=== PATIENT | male | born 1970 | race Caucasian/White ===

== ENCOUNTER 2017-10-21 18:55 | Inpatient (IN) | payer OTHER ==
[2017-10-21 20:28] LABS: Hematocrit 27.5 % (35.5-45.6); Hemoglobin 8.5 gm/dl (11.8-15.2); Mean Corpuscular HGB Conc 31 % (32-34); Mean Corpuscular Hemoglobin 28 pg (28-32); Mean Corpuscular Volume 90 fl (84-94); Platelet Count 126 K/mm3 (140-440); Red Blood Count 3.07 M/mm3 (3.65-5.03); Red Cell Distribution Width 17.5 % (13.2-15.2)
--- NOTE | 2017-10-21 20:29 | Emergency Department Report ---
HPI - General Chief Complaint: Altered Mental Status Time Seen by Provider: 10/21/17 20:14 - HPI HPI: Room 8 The patient is a 47-year-old male presenting with chief complaint of lethargy. The patient is reportedly a resident at [facility]. The patient is a very poor historian and when asked why he was sent to the emergency department patient replies "I don't know." Per nursing EMS reported the patient was sent from the [place] [facility] because he has not had dialysis in 1 month and he has been behaving in a lethargic manner. When asked how he is feeling the patient replies "not good." When asked what is bothering him the patient replies "I don 't know." Patient denies pain of any type. Patient does admit to shortness of breath but when asked for how long the patient replies for "a long time." The patient denies nausea or vomiting. 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 Patient acknowledges he has not had dialysis recently Location: [See above] Duration: Unknown, see above Quality: Shortness of breath Severity: Moderate Modifying factors: [see above] Context: [see above] Mode of transportation: [not driving] ED Past Medical Hx - Past Medical History Previous Medical History?: Yes Hx Congestive Heart Failure: Yes Hx Renal Disease: Yes (Hemodialysis) Additional medical history: Hypothyroid - Surgical History Past Surgical History?: No Additional Surgical History: Right subclavian Vas-Cath - Social History Smoking Status: Unknown if ever smoked Substance Use Type: None ED Review of Systems ROS: Stated complaint: LETHARGIC Other details as noted in HPI Eyes: denies: eye pain ENT: denies: throat pain Respiratory: shortness of breath Cardiovascular: denies: chest pain Gastrointestinal: denies: abdominal pain Genitourinary: denies: dysuria Musculoskeletal: denies: back pain Neurological: denies: headache Physical Exam - Physical Exam Vital Signs: Vital Signs 10/21/17 19:51 Pulse Rate 63 Respiratory 18 Rate Blood Pressure 153/89 O2 Sat by Pulse 100 Oximetry Physical Exam: GENERAL: The patient is well-developed well-nourished male lying on stretcher not appearing to be in acute distress. [] HEENT: Normocephalic. Atraumatic. Patient has moist mucous membranes. NECK: Supple. Trachea midline CHEST/LUNGS: Clear to auscultation. There is no respiratory distress noted. HEART/CARDIOVASCULAR: Regular. There is no tachycardia. There is no gallop rub or murmur. ABDOMEN: Abdomen is soft, nontender. Patient has normal bowel sounds. There is no abdominal distention. SKIN: There is no rash. There is 2+ bilateral lower extremity pitting edema. There is no diaphoresis. NEURO: The patient is awake and oriented. The patient is cooperative. The patient has normal speech MUSCULOSKELETAL: There is no evidence of acute injury. ED Course Vital Signs 10/21/17 19:51 Pulse Rate 63 Respiratory 18 Rate Blood Pressure 153/89 O2 Sat by Pulse 100 Oximetry - Consultations Consultation #1: 10/21/17 21:09 Nephrology paged 10/21/17 21:[address] Thomas- will arrange for dialysis tonight. Recommends giving Kayexalate 45 g now ED Medical Decision Making - Lab Data Result diagrams: 10/21/17 20:05 10/21/17 20:05 Laboratory Tests 10/21/17 10/21/17 10/21/17 20:05 20:05 20:05 WBC 5.6 RBC 3.07 L Hgb 8.5 L Hct 27.5 L MCV 90 MCH 28 MCHC 31 L RDW 17.5 H Plt Count 126 L Add Manual Diff Complete Total Counted 100 Seg Neuts % (Manual) 68.0 Band Neutrophils % 8.0 Lymphocytes % (Manual) 12.0 L Reactive Lymphs % (Man) 0 Monocytes % (Manual) 4.0 Eosinophils % (Manual) 2.0 Basophils % (Manual) 3.0 H Metamyelocytes % 1.0 Myelocytes % 2.0 Promyelocytes % 0 Blast Cells % 0 Nucleated RBC % 2.0 H Seg Neutrophils # Man 3.8 Band Neutrophils # 0.4 Lymphocytes # (Manual) 0.7 L Abs React Lymphs (Man) 0.0 Monocytes # (Manual) 0.2 Eosinophils # (Manual) 0.1 Basophils # (Manual) 0.2 H Metamyelocytes # 0.1 Myelocytes # 0.1 Promyelocytes # 0.0 Blast Cells # 0.0 WBC Morphology Not Reportable Hypersegmented Neuts Not Reportable Hyposegmented Neuts Not Reportable Hypogranular Neuts Not Reportable Smudge Cells Not Reportable Toxic Granulation Not Reportable Toxic Vacuolation Not Reportable Dohle Bodies Not Reportable Pelger-Huet Anomaly Not Reportable Heather Rods Not Reportable Platelet Estimate Consistent w auto Clumped Platelets Not Reportable Plt Clumps, EDTA Not Reportable Large Platelets Not Reportable Giant Platelets Not Reportable Platelet Satelliting Not Reportable Plt Morphology Comment Not Reportable RBC Morphology Not Reportable Dimorphic RBCs Not Reportable Polychromasia Not Reportable Hypochromasia 1+ Poikilocytosis 2+ Anisocytosis 2+ Microcytosis Not Reportable Macrocytosis Not Reportable Spherocytes Not Reportable Pappenheimer Bodies Not Reportable Sickle Cells Not Reportable Target Cells Not Reportable Tear Drop Cells Not Reportable Ovalocytes 1+ Helmet Cells Not Reportable Aguiar-Piney Bodies Not Reportable Narvon Rings Not Reportable [place] Cells Not Reportable Bite Cells Not Reportable Crenated Cell Not Reportable Elliptocytes Not Reportable Acanthocytes (Spur) Not Reportable Rouleaux Not Reportable Hemoglobin C Crystals Not Reportable Schistocytes 1+ Malaria parasites Not Reportable Orestes Bodies Not Reportable Hem Pathologist Commnt No Sodium 140 Potassium 7.2 H* Chloride 109.8 H Carbon Dioxide 6 L* Anion Gap 31 BUN 105 H Creatinine 8.7 H Estimated GFR 7 BUN/Creatinine Ratio 12 Glucose 94 Calcium 5.2 L* Total Bilirubin 0.20 AST 18 ALT 11 Alkaline Phosphatase 111 Total Protein 6.5 Albumin 2.4 L Albumin/Globulin Ratio 0.6 TSH 12.120 H Plasma/Serum Alcohol 10/21/17 20:05 WBC RBC Hgb Hct MCV MCH MCHC RDW Plt Count Add Manual Diff Total Counted Seg Neuts % (Manual) Band Neutrophils % Lymphocytes % (Manual) Reactive Lymphs % (Man) Monocytes % (Manual) Eosinophils % (Manual) Basophils % (Manual) Metamyelocytes % Myelocytes % Promyelocytes % Blast Cells % Nucleated RBC % Seg Neutrophils # Man Band Neutrophils # Lymphocytes # (Manual) Abs React Lymphs (Man) Monocytes # (Manual) Eosinophils # (Manual) Basophils # (Manual) Metamyelocytes # Myelocytes # Promyelocytes # Blast Cells # WBC Morphology Hypersegmented Neuts Hyposegmented Neuts Hypogranular Neuts Smudge Cells Toxic Granulation Toxic Vacuolation Dohle Bodies Pelger-Huet Anomaly Heather Rods Platelet Estimate Clumped Platelets Plt Clumps, EDTA Large Platelets Giant Platelets Platelet Satelliting Plt Morphology Comment RBC Morphology Dimorphic RBCs Polychromasia Hypochromasia Poikilocytosis Anisocytosis Microcytosis Macrocytosis Spherocytes Pappenheimer Bodies Sickle Cells Target Cells Tear Drop Cells Ovalocytes Helmet Cells Aguiar-Piney Bodies Narvon Rings Marcellus Cells Bite Cells Crenated Cell Elliptocytes Acanthocytes (Spur) Rouleaux Hemoglobin C Crystals Schistocytes Malaria parasites Orestes Bodies Hem Pathologist Commnt Sodium Potassium Chloride Carbon Dioxide Anion Gap BUN Creatinine Estimated GFR BUN/Creatinine Ratio Glucose Calcium Total Bilirubin AST ALT Alkaline Phosphatase Total Protein Albumin Albumin/Globulin Ratio TSH Plasma/Serum Alcohol < 0.01 - EKG Data -: EKG Interpreted by Me EKG shows normal: sinus rhythm Rate: normal - EKG Data When compared to previous EKG there are: previous EKG unavailable Interpretation: nonspecific ST-T wave nayely (T-wave inversion in leads 1, aVL, V2) , other (No peaked T waves visualized.) - Radiology Data Radiology results: image reviewed (chest x-ray) interpreted by me: Chest x-ray-mild cephalization. No definite focal infiltrate. No pneumothorax - Differential Diagnosis azotemia, hyperkalemia, pulmonary edema Critical care attestation.: If time is entered above; I have spent that time in minutes in the direct care of this critically ill patient, excluding procedure time. ED Disposition Clinical Impression: Uremia, End stage renal disease, Shortness of breath, Hyperkalemia, Hypothermia Disposition: OP ADMIT IP TO THIS HOSP Is pt being admited?: Yes Does the pt Need Aspirin: No Condition: Serious Referrals: PRIMARY CARE, [Primary Care Provider] - 3-5 Days Time of Disposition: 21:16 (hospitalist paged)
[2017-10-21 20:38] LABS: Albumin 2.4 g/dL (3.9-5)
[2017-10-21 21:08] LABS: Calcium 5.2 mg/dL (8.4-10.2)
[2017-10-21] MEDS ORDERED: D50W (25GM) Syringe IV ONE (21:08)
[2017-10-21] MEDS ORDERED: SODIUM BICARBONATE IV ONE (21:08)
[2017-10-21] MEDS ORDERED: PROVENTIL IH ONE (21:08)
[2017-10-21 21:11] LABS: Band Neutrophils # (Manual) 0.4 K/mm3; Myelocytes # (Manual) 0.1 K/mm3; Total Cells Counted 100
[2017-10-21 21:12] LABS: Anisocytosis 2+
[2017-10-21 21:13] LABS: Schistocytes 1+
[2017-10-21 21:14] LABS: Hypochromasia 1+; Ovalocytes 1+; Platelet Estimate Consistent w Auto; Poikilocytosis 2+
[2017-10-21] MEDS ORDERED: KIONEX PO ONE (21:14)
[2017-10-21] MEDS ORDERED: NACL 0.9% 100 ML IV PRN (21:27)
[2017-10-21] MEDS ORDERED: PROCRIT IV PRN (21:27)
--- NOTE | 2017-10-21 21:33 | Event Note ---
Date: 10/21/[address] Krause about patient who presented with renal failure and hyperkalemia. Has not receive Dialysis in about a month. Patient has Permacath. Chart reviewed. We'll arrange for dialysis tonight. Full consult to follow in the morning.
--- NOTE | 2017-10-21 21:42 | XRay Report ---
FINAL REPORT PROCEDURE: Chest. TECHNIQUE: Portable AP view. HISTORY: Shortness of breath. COMPARISON: No prior studies are available for comparison. FINDINGS: The heart size is mildly enlarged. There may be some increased interstitial markings in the perihilar regions of both lungs. This could represent interstitial pulmonary edema. The lungs are otherwise clear. There are no pleural effusions. There is moderate elevation of the right hemidiaphragm. There is a right internal jugular venous dialysis catheter that terminates near the cavoatrial junction. The soft tissues and regional skeleton are unremarkable. IMPRESSION: Mild cardiomegaly. Question early interstitial pulmonary edema.
[2017-10-21] MEDS ORDERED: DULCOLAX PR PRN (21:46)
[2017-10-21] MEDS ORDERED: TYLENOL PO PRN (21:46)
[2017-10-21] MEDS ORDERED: MILK OF MAGNESIA PO PRN (21:46)
[2017-10-21] MEDS ORDERED: ZOFRAN IV PRN (21:46)
--- NOTE | 2017-10-21 21:48 | History and Physical Report ---
History of Present Illness Date of examination: 10/21/17 Date of admission: 10/21/17 21:23 History of present illness: 47-year-old man history of CHF, end-stage renal disease, hypothyroidism was brought to the emergency room for evaluation because he missed 1 month off dialysis. He is unable to give a history, review of system is unobtainable PAST MEDICAL HISTORY: CHF, end-stage renal disease, hypothyroidism, hypertension PAST SURGICAL HISTORY: Unknown SOCIAL HISTORY: Unknown FAMILY HISTORY: Unknown Medications and Allergies Allergies Allergy/AdvReac Type Severity Reaction Status Date / Time No Known Allergies Allergy Unverified 10/21/17 19:48 Home Medications Medication Instructions Recorded Confirmed Last Taken Type Atorvastatin Calcium [Lipitor] 10 mg PO QHS 10/21/17 Unknown History Calcium Acetate [Phoslo] 667 mg PO TID 10/21/17 Unknown History Levothyroxine [Synthroid] 25 mcg PO QAM 10/21/17 Unknown History Lisinopril [Zestril TAB] 2.5 mg PO QDAY 10/21/17 Unknown History Metoprolol [Lopressor] 25 mg PO DAILY 10/21/17 Unknown History Sulfamethoxazole/Trimethoprim 1 each PO DAILY 10/21/17 Unknown History [Sulfamethoxazole-Tmp Ss Tablet] Active Meds: Active Medications Epoetin Boyd (Procrit) 10,000 unit IV ASHISH PRN PRN Reason: hemodialysis Heparin Sodium (Porcine) (Heparin) 5,000 unit IV ASHISH PRN PRN Reason: hemodialysis Calcium Gluconate 1,000 mg/ (Sodium Chloride) 110 mls @ 660 mls/hr IV ONCE.ED ONE Stop: 10/21/17 22:09 Sodium Chloride (Nacl 0.9%) 100 mls @ 999 mls/hr IV ASHISH PRN PRN Reason: Hypotension Exam - Physical Exam Narrative exam: Gen. appearance: Patient lying in bed, no apparent distress HEENT: Normocephalic, atraumatic, pupils equally round and reactive to light, extraocular movement intact, and no sclericterus,. No JVD or thyromegaly or nodule,neck supple, no carotid bruit ,mucous membranes moist, no exudate or erythema Heart: S1, S2, regular rate and rhythm Lungs: Clear to auscultation bilaterally, breathing comfortable Abdomen: Positive bowel sounds, nontender, nondistended, no organomegaly Extremity: No edema, cyanosis, clubbing Skin: No rash, nodules, warm, dry Neuro: Difficult to assess, oriented to name,place - Constitutional Vitals: Temp Pulse Resp BP Pulse Ox 93.4 F L 79 22 153/89 100 10/21/17 19:51 10/21/17 21:21 10/21/17 21:21 10/21/17 19:51 10/21/17 19:51 Results - Labs CBC & Chem 7: 10/21/17 20:05 10/21/17 20:05 Labs: Abnormal lab results 10/21/17 10/21/17 10/21/17 Range/Units 20:05 20:05 20:05 RBC 3.07 L (3.65-5.03) M/mm3 Hgb 8.5 L (11.8-15.2) gm/dl Hct 27.5 L (35.5-45.6) % MCHC 31 L (32-34) % RDW 17.5 H (13.2-15.2) % Plt Count 126 L (140-440) K/mm3 Lymphocytes % (Manual) 12.0 L (13.4-35.0) % Basophils % (Manual) 3.0 H (0.0-1.8) % Nucleated RBC % 2.0 H (0.0-0.9) % Lymphocytes # (Manual) 0.7 L (1.2-5.4) K/mm3 Basophils # (Manual) 0.2 H (0.0-0.1) K/mm3 Potassium 7.2 H* (3.6-5.0) mmol/L Chloride 109.8 H (98-107) mmol/L Carbon Dioxide 6 L* (22-30) mmol/L BUN 105 H (9-20) mg/dL Creatinine 8.7 H (0.8-1.5) mg/dL Calcium 5.2 L* (8.4-10.2) mg/dL Albumin 2.4 L (3.9-5) g/dL TSH 12.120 H (0.270-4.200) mlU/mL - Imaging and Cardiology EKG: image reviewed Chest x-ray: image reviewed Assessment and Plan Assessment Fluid overload End-stage renal disease on dialysis Hyperkalemia Elevated cardiac enzymes Hypothyroidism Hypertension Plan Admit to medicine Consult renal for stat hemodialysis Status post Kayexalate Check cardiac enzymes, echo Obtain CT head Continue appropriate outpatient medications DVT prophylaxis
[2017-10-21] MEDS ORDERED: CALCIUM GLUCONATE 1,000 MG in NACL 0.9% 100 ML IV ONE (22:00)
--- NOTE | 2017-10-21 22:17 | Cat Scan Report ---
FINAL REPORT PROCEDURE: CT HEAD/BRAIN W CON TECHNIQUE: Computerized tomography of the head was performed without contrast material. HISTORY: lethargic COMPARISON: No prior studies are available for comparison. FINDINGS: Brain: Brain density appears normal. No evidence of intracranial hemorrhage. No parenchymal hemorrhage, mass lesions or mass effect are seen. No abnormal extraxial fluid collects or masses are seen. Ventricles: Ventricles are normal size and are midline. Bone Windows: No evidence of skull fracture. Paranasal sinuses: There is minimal mucosal thickening medially in the right frontal sinus and in a few of the ethmoid air cells bilaterally. Paranasal sinuses otherwise are clear. Mastoid air cells: Clear IMPRESSION: Negative unenhanced CT scan of the brain. Minimal paranasal sinus disease as described.
[2017-10-21 23:01] LABS: Creatine Kinase MB 34.3 ng/mL (0.0-4.0)
[2017-10-21 23:27] LABS: Chol/HDL Ratio 2.26 %
[2017-10-22] MEDS ORDERED: CATHFLO IV STA (01:05)
[2017-10-22] MEDS ORDERED: NACL 0.9 (PRIMING MACHINE ONLY DIALYSIS) MC ONE (01:16)
[2017-10-22] MEDS: APRESOLINE IV PRN ×2 (03:30→21:31)
[2017-10-22] MEDS ORDERED: SYNTHROID PO SCH ×2 (06:00→09:30)
[2017-10-22] MEDS: HEPARIN IV PRN (06:03)
[2017-10-22 06:57] LABS: Creatine Kinase MB 30.4 ng/mL (0.0-4.0)
[2017-10-22 06:59] LABS: Calcium 7.5 mg/dL (8.4-10.2)
[2017-10-22 07:09] LABS: Hepatitis A Antibody IgM Non-Reactive (NonReactive); Hepatitis B Core IgM Non-Reactive (NonReactive); Hepatitis B Surface Antigen Reactive (Negative); Hepatitis C Virus Antibody Non-Reactive (NonReactive)
[2017-10-22 07:22] LABS: Hematocrit 23.1 % (35.5-45.6); Hemoglobin 7.7 gm/dl (11.8-15.2); Mean Corpuscular HGB Conc 33 % (32-34); Mean Corpuscular Hemoglobin 28 pg (28-32); Mean Corpuscular Volume 84 fl (84-94); Platelet Count 129 K/mm3 (140-440); Red Blood Count 2.75 M/mm3 (3.65-5.03); Red Cell Distribution Width 16.6 % (13.2-15.2)
[2017-10-22] MEDS: PHOSLO PO SCH ×3 (08:17→18:18)
[2017-10-22 08:21] LABS: Band Neutrophils # (Manual) 0.2 K/mm3; Total Cells Counted 100
[2017-10-22 08:22] LABS: Basophils % (Manual) 0 % (0.0-1.8)
[2017-10-22 08:23] LABS: Acanthocytes Few; Anisocytosis 1+; Poikilocytosis 1+
[2017-10-22 08:25] LABS: Large Platelets Few; Ovalocytes Few; Platelet Estimate Cons
--- NOTE | 2017-10-22 09:17 | Consultation ---
History of Present Illness - Reason for Consult Consult date: 10/22/17 end stage renal disease Requesting physician: GIANLUCA MENDES - History of Present Illness 47-year-old male with a history of end-stage renal disease on hemodialysis who has not been to dialysis for a few weeks reportedly. 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 He says he is from [facility] and does not have any family here. He was reportedly brought here from a [place] [facility] but there is no phone number or contact information in the chart. Patient is not able to give history. He keeps saying " I Don't Know". BUN and Creatinine Were Elevated at 105/8.7 with Potassium of 7.2 mmols/L. I was called Last Night and gave Orders for Emergency Dialysis. Patient Seen Past History Past Medical History: other (Unable to obtain) Past Surgical History: Other (Unable to obtain) Social history: other (Unable to obtain) Family history: other (Unable to obtain) Medications and Allergies Allergies Allergy/AdvReac Type Severity Reaction Status Date / Time No Known Allergies Allergy Unverified 10/21/17 19:48 Home Medications Medication Instructions Recorded Confirmed Last Taken Type Atorvastatin Calcium [Lipitor] 10 mg PO QHS 10/21/17 10/22/17 1 Day Ago History ~10/21/17 Calcium Acetate [Phoslo] 667 mg PO TID 10/21/17 10/22/17 1 Day Ago History ~10/21/17 Levothyroxine [Synthroid] 25 mcg PO QAM 10/21/17 10/22/17 1 Day Ago History ~10/21/17 Lisinopril [Zestril TAB] 2.5 mg PO QDAY 10/21/17 10/22/17 1 Day Ago History ~10/21/17 Metoprolol [Lopressor] 25 mg PO DAILY 10/21/17 10/22/17 1 Day Ago History ~10/21/17 Sulfamethoxazole/Trimethoprim 1 each PO DAILY 10/21/17 10/22/17 1 Week Ago History [Sulfamethoxazole-Tmp Ss Tablet] ~10/15/17 Active Meds: Active Medications Acetaminophen (Tylenol) 650 mg PO Q4H PRN PRN Reason: Pain MILD(1-3)/Fever >100.5/CM Atorvastatin Calcium (Lipitor) 10 mg PO QHS SALLY Bisacodyl (Dulcolax) 10 mg TN QDAY PRN PRN Reason: Constipation unrelieved by [facility] Calcium Acetate (Phoslo) 667 mg PO TIDWM SALLY Epoetin Boyd (Procrit) 10,000 unit IV ASHISH PRN PRN Reason: hemodialysis Heparin Sodium (Porcine) (Heparin) 5,000 unit IV ASHISH PRN PRN Reason: hemodialysis Last Admin: 10/22/17 06:03 Dose: 5,000 unit Hydralazine HCl (Apresoline) 5 mg IV Q6H PRN PRN Reason: Hypertension Last Admin: 10/22/17 03:30 Dose: 5 mg Sodium Chloride (Nacl 0.9%) 100 mls @ 999 mls/hr IV ASHISH PRN PRN Reason: Hypotension Levofloxacin (Levaquin) 500 mg PO Q48H SALLY Levothyroxine Sodium (Synthroid) 25 mcg PO QAM@0600 SALLY Magnesium Hydroxide (Milk Of Magnesia) 30 ml PO Q4H PRN PRN Reason: Constipation Ondansetron HCl (Zofran) 4 mg IV Q8H PRN PRN Reason: N/V unrelieved by Reglan Review of Systems ROS unobtainable: due to mental status (Patient keeps saying "I don't know" to questions) Exam - Vital Signs Vital signs: Vital Signs Temp Pulse Resp BP Pulse Ox 93.4 F L 63 18 153/89 100 10/21/17 19:51 10/21/17 19:51 10/21/17 19:51 10/21/17 19:51 10/21/17 19:51 - Physical Exam Narrative exam: Middle aged male lying in bed in no acute distress coughing intermittently HEENT: NCAT, blind right eye, pink oral mucous membrane Neck: Supple, no venous distention CVS: S1S2 RRR with no murmur, rub or gallop Chest: Clear to auscultation Abdomen: Protuberant, soft, nontender, no organomegaly, bowel sounds are present Extremities: No edema Skin with hyperpigmented scars and scratch butler Neuro: Awake, alert no focal deficits Results - Lab Results 10/22/17 07:06 10/22/17 05:30 Most recent lab results Calcium 7.5 mg/dL (8.4-10.2) L D 02/26/18 05:30 Assessment and Plan - Patient Problems (1) End stage renal disease Current Visit: Yes Status: Acute Plan to address problem: Patient received dialysis last night. We'll do hemodialysis again tomorrow. brand protection manager to arrange for outpatient dialysis placement. It's unclear if patient is documented or has any medical insurance. This has to be ascertained also. Get PPD and check hepatitis B surface antibody (2) Hyperkalemia Current Visit: Yes Status: Acute Plan to address problem: Potassium improved with dialysis. Potassium which is noticeably low this am was drawn soon after dialysis. There will be equilibration later and so this does not need to be replaced (3) Hypocalcemia Current Visit: Yes Status: Acute Plan to address problem: Calcium improving with dialysis on a high calcium bath. Check serum intact PTH (4) Anemia in chronic kidney disease Current Visit: Yes Status: Acute Plan to address problem: Erythropoietin on dialysis (5) Metabolic acidosis Current Visit: Yes Status: Acute Plan to address problem: Uremic acidosis. Should improve with dialysis. (6) Hypothyroidism (acquired) Current Visit: Yes Status: Acute Plan to address problem: Checkup thyroid Profile. Start Synthroid
[2017-10-22] MEDS: SYNTHROID PO SCH (10:19)
--- NOTE | 2017-10-22 15:48 | Progress Note ---
<MICHAEL PERKINS - Last Filed: 10/22/17 15:44> Assessment and Plan Assessment and plan: 47-year-old man history of CHF, end-stage renal disease, hypothyroidism was brought to the emergency room for evaluation because he missed 1 month off dialysis. End-stage renal disease on dialysis Nephrology following, HD scheduled for tomorrow Hyperkalemia S/p Kayexalate, Corrected with dialysis Elevated cardiac enzymes Likely due to ESRD, consult to cardiology Hypothyroidism Continue Synthroid Hypertension Hydralazine PRN Anemia of chronic disease Erythropoietin on dialysis Hypocalcemia Improving with HD DVT prophylaxis SCDs History Interval history: Patient seen and examined. Very lethargic today. Denies CP, SOB. Labs and nursing notes reviewed. Hospitalist Physical - Constitutional Vitals: Temp Pulse Resp BP Pulse Ox 97.9 F 101 H 20 179/91 96 10/22/17 06:30 10/22/17 07:18 10/22/17 07:18 10/22/17 07:18 10/22/17 08:30 General appearance: Present: no acute distress, well-nourished - EENT Eyes: Present: PERRL, EOM intact ENT: hearing intact, clear oral mucosa - Neck Neck: Present: supple, normal ROM - Respiratory Respiratory effort: normal Respiratory: bilateral: CTA - Cardiovascular Rhythm: regular Heart Sounds: Present: S1 & S2 - Extremities Extremities: no ischemia, No edema - Abdominal General gastrointestinal: soft, non-tender, non-distended - Integumentary Integumentary: Present: clear, warm - Psychiatric Psychiatric: appropriate mood/affect, cooperative - Neurologic Neurologic: CNII-XII intact, moves all extremities - Allied Health Allied health notes reviewed: nursing Results - Labs CBC & Chem 7: 10/22/17 07:06 10/22/17 05:30 Labs: Laboratory Last Values WBC 5.4 K/mm3 (4.5-11.0) 10/22/17 07:06 RBC 2.75 M/mm3 (3.65-5.03) L 10/22/17 07:06 Hgb 7.7 gm/dl (11.8-15.2) L 10/22/17 07:06 Hct 23.1 % (35.5-45.6) L 10/22/17 07:06 MCV 84 fl (84-94) 10/22/17 07:06 MCH 28 pg (28-32) 10/22/17 07:06 MCHC 33 % (32-34) 10/22/17 07:06 RDW 16.6 % (13.2-15.2) H 10/22/17 07:06 Plt Count 129 K/mm3 (140-440) L 10/22/17 07:06 Add Manual Diff Complete 10/22/17 07:06 Total Counted 100 10/22/17 07:06 Seg Neuts % (Manual) 87.0 % (40.0-70.0) H 10/22/17 07:06 Band Neutrophils % 3.0 % 10/22/17 07:06 Lymphocytes % (Manual) 6.0 % (13.4-35.0) L 10/22/17 07:06 Reactive Lymphs % (Man) 0 % 10/22/17 07:06 Monocytes % (Manual) 1.0 % (0.0-7.3) 10/22/17 07:06 Eosinophils % (Manual) 1.0 % (0.0-4.3) 10/22/17 07:06 Basophils % (Manual) 0 % (0.0-1.8) 10/22/17 07:06 Metamyelocytes % 2.0 % 10/22/17 07:06 Myelocytes % 0 % 10/22/17 07:06 Promyelocytes % 0 % 10/22/17 07:06 Blast Cells % 0 % 10/22/17 07:06 Nucleated RBC % 3.0 % (0.0-0.9) H 10/22/17 07:06 Seg Neutrophils # Man 4.7 K/mm3 (1.8-7.7) 10/22/17 07:06 Band Neutrophils # 0.2 K/mm3 10/22/17 07:06 Lymphocytes # (Manual) 0.3 K/mm3 (1.2-5.4) L 10/22/17 07:06 Abs React Lymphs (Man) 0.0 K/mm3 10/22/17 07:06 Monocytes # (Manual) 0.1 K/mm3 (0.0-0.8) 10/22/17 07:06 Eosinophils # (Manual) 0.1 K/mm3 (0.0-0.4) 10/22/17 07:06 Basophils # (Manual) 0.0 K/mm3 (0.0-0.1) 10/22/17 07:06 Metamyelocytes # 0.1 K/mm3 10/22/17 07:06 Myelocytes # 0.0 K/mm3 10/22/17 07:06 Promyelocytes # 0.0 K/mm3 10/22/17 07:06 Blast Cells # 0.0 K/mm3 10/22/17 07:06 WBC Morphology Not Reportable 10/22/17 07:06 Hypersegmented Neuts Not Reportable 10/22/17 07:06 Hyposegmented Neuts Not Reportable 10/22/17 07:06 Hypogranular Neuts Not Reportable 10/22/17 07:06 Smudge Cells Not Reportable 10/22/17 07:06 Toxic Granulation Not Reportable 10/22/17 07:06 Toxic Vacuolation Not Reportable 10/22/17 07:06 Dohle Bodies Not Reportable 10/22/17 07:06 Pelger-Huet Anomaly Not Reportable 10/22/17 07:06 Heather Rods Not Reportable 10/22/17 07:06 Platelet Estimate Cons 10/22/17 07:06 Clumped Platelets Not Reportable 10/22/17 07:06 Plt Clumps, EDTA Not Reportable 10/22/17 07:06 Large Platelets Few 10/22/17 07:06 Giant Platelets Not Reportable 10/22/17 07:06 Platelet Satelliting Not Reportable 10/22/17 07:06 Plt Morphology Comment Not Reportable 10/22/17 07:06 RBC Morphology Not Reportable 10/22/17 07:06 Dimorphic RBCs Not Reportable 10/22/17 07:06 Polychromasia Not Reportable 10/22/17 07:06 Hypochromasia Not Reportable 10/22/17 07:06 Poikilocytosis 1+ 10/22/17 07:06 Anisocytosis 1+ 10/22/17 07:06 Microcytosis Not Reportable 10/22/17 07:06 Macrocytosis Not Reportable 10/22/17 07:06 Spherocytes Not Reportable 10/22/17 07:06 Pappenheimer Bodies Not Reportable 10/22/17 07:06 Sickle Cells Not Reportable 10/22/17 07:06 Target Cells Not Reportable 10/22/17 07:06 Tear Drop Cells Not Reportable 10/22/17 07:06 Ovalocytes Few 10/22/17 07:06 Helmet Cells Not Reportable 10/22/17 07:06 Aguiar-Kinsley Bodies Not Reportable 10/22/17 07:06 [place] Rings Not Reportable 10/22/17 07:06 Marcellus Cells Not Reportable 10/22/17 07:06 Bite Cells Not Reportable 10/22/17 07:06 Crenated Cell Not Reportable 10/22/17 07:06 Elliptocytes Rare 10/22/17 07:06 Acanthocytes (Spur) Few 10/22/17 07:06 Rouleaux Not Reportable 10/22/17 07:06 Hemoglobin C Crystals Not Reportable 10/22/17 07:06 Schistocytes Not Reportable 10/22/17 07:06 Malaria parasites Not Reportable 10/22/17 07:06 Orestes Bodies Not Reportable 10/22/17 07:06 Hem Pathologist Commnt No 10/22/17 07:06 Sodium 141 mmol/L (137-145) 10/22/17 05:30 Potassium 3.0 mmol/L (3.6-5.0) L D 10/22/17 05:30 Chloride 100.6 mmol/L (98-107) 10/22/17 05:30 Carbon Dioxide 19 mmol/L (22-30) L D 10/22/17 05:30 Anion Gap 24 mmol/L 10/22/17 05:30 BUN 41 mg/dL (9-20) H 10/22/17 05:30 Creatinine 3.8 mg/dL (0.8-1.5) H D 10/22/17 05:30 Estimated GFR 17 ml/min 10/22/17 05:30 BUN/Creatinine Ratio 11 % 10/22/17 05:30 Glucose 137 mg/dL (75-100) H 10/22/17 05:30 POC Glucose 190 (70-105) H 10/21/17 21:59 Calcium 7.5 mg/dL (8.4-10.2) L D 10/22/17 05:30 Total Bilirubin 0.20 mg/dL (0.1-1.2) 10/21/17 20:05 AST 18 units/L (5-40) 10/21/17 20:05 ALT 11 units/L (7-56) 10/21/17 20:05 Alkaline Phosphatase 111 units/L (35-129) 10/21/17 20:05 Total Creatine Kinase 2198 units/L (55-170) H 10/22/17 05:30 CK-MB (CK-2) 30.4 ng/mL (0.0-4.0) H 10/22/17 05:30 CK-MB (CK-2) Rel Index 1.3 (0-4) 10/22/17 05:30 Troponin T 0.572 ng/mL (0.00-0.029) H* D 10/22/17 05:30 Total Protein 6.5 g/dL (6.3-8.2) 10/21/17 20:05 Albumin 2.4 g/dL (3.9-5) L 10/21/17 20:05 Albumin/Globulin Ratio 0.6 % 10/21/17 20:05 Triglycerides 115 mg/dL (2-149) 10/21/17 20:05 Cholesterol 111 mg/dL (50-199) 10/21/17 20:05 LDL Cholesterol Direct 39 mg/dL (50-130) L 10/21/17 20:05 HDL Cholesterol 49 mg/dL (40-59) 10/21/17 20:05 Cholesterol/HDL Ratio 2.26 % 10/21/17 20:05 TSH 12.120 mlU/mL (0.270-4.200) H 10/21/17 20:05 Plasma/Serum Alcohol < 0.01 % (0-0.07) 10/21/17 20:05 Hepatitis A IgM Ab Non-reactive (NonReactive) 10/22/17 05:30 Hep Bs Antigen Reactive (Negative) 10/22/17 05:30 Hep B Core IgM Ab Non-reactive (NonReactive) 10/22/17 05:30 Hepatitis C Antibody Non-reactive (NonReactive) 10/22/17 05:30 <ZAHRAA RUSSELL - Last Filed: 10/22/17 20:42> Assessment and Plan Assessment and plan: I saw and evaluated the patient. I agree with the findings and the plan of care as documented in the Physician Tractor Mechanic's~note, with the following corrections and additions. Discussed with Clinical Rn Liaison. Hospitalist Physical - Constitutional Vitals: Temp Pulse Resp BP Pulse Ox 98.9 F 92 H 20 186/104 94 10/22/17 19:46 10/22/17 19:46 10/22/17 19:46 10/22/17 19:46 10/22/17 19:46 Results - Labs CBC & Chem 7: 10/22/17 07:06 10/22/17 05:30 Labs: Laboratory Last Values WBC 5.4 K/mm3 (4.5-11.0) 10/22/17 07:06 RBC 2.75 M/mm3 (3.65-5.03) L 10/22/17 07:06 Hgb 7.7 gm/dl (11.8-15.2) L 10/22/17 07:06 Hct 23.1 % (35.5-45.6) L 10/22/17 07:06 MCV 84 fl (84-94) 10/22/17 07:06 MCH 28 pg (28-32) 10/22/17 07:06 MCHC 33 % (32-34) 10/22/17 07:06 RDW 16.6 % (13.2-15.2) H 10/22/17 07:06 Plt Count 129 K/mm3 (140-440) L 10/22/17 07:06 Add Manual Diff Complete 10/22/17 07:06 Total Counted 100 10/22/17 07:06 Seg Neuts % (Manual) 87.0 % (40.0-70.0) H 10/22/17 07:06 Band Neutrophils % 3.0 % 10/22/17 07:06 Lymphocytes % (Manual) 6.0 % (13.4-35.0) L 10/22/17 07:06 Reactive Lymphs % (Man) 0 % 10/22/17 07:06 Monocytes % (Manual) 1.0 % (0.0-7.3) 10/22/17 07:06 Eosinophils % (Manual) 1.0 % (0.0-4.3) 10/22/17 07:06 Basophils % (Manual) 0 % (0.0-1.8) 10/22/17 07:06 Metamyelocytes % 2.0 % 10/22/17 07:06 Myelocytes % 0 % 10/22/17 07:06 Promyelocytes % 0 % 10/22/17 07:06 Blast Cells % 0 % 10/22/17 07:06 Nucleated RBC % 3.0 % (0.0-0.9) H 10/22/17 07:06 Seg Neutrophils # Man 4.7 K/mm3 (1.8-7.7) 10/22/17 07:06 Band Neutrophils # 0.2 K/mm3 10/22/17 07:06 Lymphocytes # (Manual) 0.3 K/mm3 (1.2-5.4) L 10/22/17 07:06 Abs React Lymphs (Man) 0.0 K/mm3 10/22/17 07:06 Monocytes # (Manual) 0.1 K/mm3 (0.0-0.8) 10/22/17 07:06 Eosinophils # (Manual) 0.1 K/mm3 (0.0-0.4) 10/22/17 07:06 Basophils # (Manual) 0.0 K/mm3 (0.0-0.1) 10/22/17 07:06 Metamyelocytes # 0.1 K/mm3 10/22/17 07:06 Myelocytes # 0.0 K/mm3 10/22/17 07:06 Promyelocytes # 0.0 K/mm3 10/22/17 07:06 Blast Cells # 0.0 K/mm3 10/22/17 07:06 WBC Morphology Not Reportable 10/22/17 07:06 Hypersegmented Neuts Not Reportable 10/22/17 07:06 Hyposegmented Neuts Not Reportable 10/22/17 07:06 Hypogranular Neuts Not Reportable 10/22/17 07:06 Smudge Cells Not Reportable 10/22/17 07:06 Toxic Granulation Not Reportable 10/22/17 07:06 Toxic Vacuolation Not Reportable 10/22/17 07:06 Dohle Bodies Not Reportable 10/22/17 07:06 Pelger-Huet Anomaly Not Reportable 10/22/17 07:06 Heather Rods Not Reportable 10/22/17 07:06 Platelet Estimate Cons 10/22/17 07:06 Clumped Platelets Not Reportable 10/22/17 07:06 Plt Clumps, EDTA Not Reportable 10/22/17 07:06 Large Platelets Few 10/22/17 07:06 Giant Platelets Not Reportable 10/22/17 07:06 Platelet Satelliting Not Reportable 10/22/17 07:06 Plt Morphology Comment Not Reportable 10/22/17 07:06 RBC Morphology Not Reportable 10/22/17 07:06 Dimorphic RBCs Not Reportable 10/22/17 07:06 Polychromasia Not Reportable 10/22/17 07:06 Hypochromasia Not Reportable 10/22/17 07:06 Poikilocytosis 1+ 10/22/17 07:06 Anisocytosis 1+ 10/22/17 07:06 Microcytosis Not Reportable 10/22/17 07:06 Macrocytosis Not Reportable 10/22/17 07:06 Spherocytes Not Reportable 10/22/17 07:06 Pappenheimer Bodies Not Reportable 10/22/17 07:06 Sickle Cells Not Reportable 10/22/17 07:06 Target Cells Not Reportable 10/22/17 07:06 Tear Drop Cells Not Reportable 10/22/17 07:06 Ovalocytes Few 10/22/17 07:06 Helmet Cells Not Reportable 10/22/17 07:06 Aguiar-Kinsley Bodies Not Reportable 10/22/17 07:06 [place] Rings Not Reportable 10/22/17 07:06 [place] Cells Not Reportable 10/22/17 07:06 Bite Cells Not Reportable 10/22/17 07:06 Crenated Cell Not Reportable 10/22/17 07:06 Elliptocytes Rare 10/22/17 07:06 Acanthocytes (Spur) Few 10/22/17 07:06 Rouleaux Not Reportable 10/22/17 07:06 Hemoglobin C Crystals Not Reportable 10/22/17 07:06 Schistocytes Not Reportable 10/22/17 07:06 Malaria parasites Not Reportable 10/22/17 07:06 Orestes Bodies Not Reportable 10/22/17 07:06 Hem Pathologist Commnt No 10/22/17 07:06 Sodium 141 mmol/L (137-145) 10/22/17 05:30 Potassium 3.0 mmol/L (3.6-5.0) L D 10/22/17 05:30 Chloride 100.6 mmol/L (98-107) 10/22/17 05:30 Carbon Dioxide 19 mmol/L (22-30) L D 10/22/17 05:30 Anion Gap 24 mmol/L 10/22/17 05:30 BUN 41 mg/dL (9-20) H 10/22/17 05:30 Creatinine 3.8 mg/dL (0.8-1.5) H D 10/22/17 05:30 Estimated GFR 17 ml/min 10/22/17 05:30 BUN/Creatinine Ratio 11 % 10/22/17 05:30 Glucose 137 mg/dL (75-100) H 10/22/17 05:30 POC Glucose 190 (70-105) H 10/21/17 21:59 Calcium 7.5 mg/dL (8.4-10.2) L D 10/22/17 05:30 Total Bilirubin 0.20 mg/dL (0.1-1.2) 10/21/17 20:05 AST 18 units/L (5-40) 10/21/17 20:05 ALT 11 units/L (7-56) 10/21/17 20:05 Alkaline Phosphatase 111 units/L (35-129) 10/21/17 20:05 Total Creatine Kinase 2198 units/L (55-170) H 10/22/17 05:30 CK-MB (CK-2) 30.4 ng/mL (0.0-4.0) H 10/22/17 05:30 CK-MB (CK-2) Rel Index 1.3 (0-4) 10/22/17 05:30 Troponin T 0.572 ng/mL (0.00-0.029) H* D 10/22/17 05:30 Total Protein 6.5 g/dL (6.3-8.2) 10/21/17 20:05 Albumin 2.4 g/dL (3.9-5) L 10/21/17 20:05 Albumin/Globulin Ratio 0.6 % 10/21/17 20:05 Triglycerides 115 mg/dL (2-149) 10/21/17 20:05 Cholesterol 111 mg/dL (50-199) 10/21/17 20:05 LDL Cholesterol Direct 39 mg/dL (50-130) L 10/21/17 20:05 HDL Cholesterol 49 mg/dL (40-59) 10/21/17 20:05 Cholesterol/HDL Ratio 2.26 % 10/21/17 20:05 TSH 12.120 mlU/mL (0.270-4.200) H 10/21/17 20:05 Plasma/Serum Alcohol < 0.01 % (0-0.07) 10/21/17 20:05 Hepatitis A IgM Ab Non-reactive (NonReactive) 10/22/17 05:30 Hep Bs Antigen Reactive (Negative) 10/22/17 05:30 Hep B Core IgM Ab Non-reactive (NonReactive) 10/22/17 05:30 Hepatitis C Antibody Non-reactive (NonReactive) 10/22/17 05:30
[2017-10-23] MEDS: SYNTHROID PO SCH (07:58)
[2017-10-23] MEDS: PHOSLO PO SCH ×4 (08:00→22:01)
--- NOTE | 2017-10-23 11:23 | Progress Note ---
<MICHAEL PERKINS - Last Filed: 10/23/17 15:17> Assessment and Plan Assessment and plan: 47-year-old man history of CHF, end-stage renal disease, hypothyroidism was brought to the emergency room for evaluation because he missed 1 month off dialysis. End-stage renal disease on dialysis Nephrology following, HD scheduled for tomorrow Hyperkalemia S/p Kayexalate, Corrected with dialysis Elevated cardiac enzymes Likely due to ESRD, cardiology following, echo ordered, initiated on metoprolol Hypothyroidism Continue Synthroid Hypertension Amlodipine initiated, Hydralazine PRN Anemia of chronic disease Erythropoietin on dialysis Hypocalcemia Improving with HD DVT prophylaxis SCDs History Interval history: Patient seen and examined. No new events overnight. Labs and nursing notes reviewed. Hospitalist Physical - Constitutional Vitals: Temp Pulse Resp BP Pulse Ox 97.7 F 97 H 18 147/100 97 10/23/17 07:28 10/23/17 07:44 10/23/17 07:28 10/23/17 07:28 10/23/17 00:00 General appearance: Present: no acute distress, well-nourished - EENT Eyes: Present: PERRL, EOM intact ENT: hearing intact, clear oral mucosa - Neck Neck: Present: supple, normal ROM - Respiratory Respiratory effort: normal Respiratory: bilateral: CTA - Cardiovascular Rhythm: regular Heart Sounds: Present: S1 & S2 - Extremities Extremities: no ischemia, No edema - Abdominal General gastrointestinal: soft, non-tender, non-distended - Integumentary Integumentary: Present: clear, warm, dry - Psychiatric Psychiatric: appropriate mood/affect, cooperative - Neurologic Neurologic: CNII-XII intact, moves all extremities - Allied Health Allied health notes reviewed: nursing Results - Labs CBC & Chem 7: 10/22/17 07:06 10/22/17 05:30 Labs: Laboratory Last Values WBC 5.4 K/mm3 (4.5-11.0) 10/22/17 07:06 RBC 2.75 M/mm3 (3.65-5.03) L 10/22/17 07:06 Hgb 7.7 gm/dl (11.8-15.2) L 10/22/17 07:06 Hct 23.1 % (35.5-45.6) L 10/22/17 07:06 MCV 84 fl (84-94) 10/22/17 07:06 MCH 28 pg (28-32) 10/22/17 07:06 MCHC 33 % (32-34) 10/22/17 07:06 RDW 16.6 % (13.2-15.2) H 10/22/17 07:06 Plt Count 129 K/mm3 (140-440) L 10/22/17 07:06 Add Manual Diff Complete 10/22/17 07:06 Total Counted 100 10/22/17 07:06 Seg Neuts % (Manual) 87.0 % (40.0-70.0) H 10/22/17 07:06 Band Neutrophils % 3.0 % 10/22/17 07:06 Lymphocytes % (Manual) 6.0 % (13.4-35.0) L 10/22/17 07:06 Reactive Lymphs % (Man) 0 % 10/22/17 07:06 Monocytes % (Manual) 1.0 % (0.0-7.3) 10/22/17 07:06 Eosinophils % (Manual) 1.0 % (0.0-4.3) 10/22/17 07:06 Basophils % (Manual) 0 % (0.0-1.8) 10/22/17 07:06 Metamyelocytes % 2.0 % 10/22/17 07:06 Myelocytes % 0 % 10/22/17 07:06 Promyelocytes % 0 % 10/22/17 07:06 Blast Cells % 0 % 10/22/17 07:06 Nucleated RBC % 3.0 % (0.0-0.9) H 10/22/17 07:06 Seg Neutrophils # Man 4.7 K/mm3 (1.8-7.7) 10/22/17 07:06 Band Neutrophils # 0.2 K/mm3 10/22/17 07:06 Lymphocytes # (Manual) 0.3 K/mm3 (1.2-5.4) L 10/22/17 07:06 Abs React Lymphs (Man) 0.0 K/mm3 10/22/17 07:06 Monocytes # (Manual) 0.1 K/mm3 (0.0-0.8) 10/22/17 07:06 Eosinophils # (Manual) 0.1 K/mm3 (0.0-0.4) 10/22/17 07:06 Basophils # (Manual) 0.0 K/mm3 (0.0-0.1) 10/22/17 07:06 Metamyelocytes # 0.1 K/mm3 10/22/17 07:06 Myelocytes # 0.0 K/mm3 10/22/17 07:06 Promyelocytes # 0.0 K/mm3 10/22/17 07:06 Blast Cells # 0.0 K/mm3 10/22/17 07:06 WBC Morphology Not Reportable 10/22/17 07:06 Hypersegmented Neuts Not Reportable 10/22/17 07:06 Hyposegmented Neuts Not Reportable 10/22/17 07:06 Hypogranular Neuts Not Reportable 10/22/17 07:06 Smudge Cells Not Reportable 10/22/17 07:06 Toxic Granulation Not Reportable 10/22/17 07:06 Toxic Vacuolation Not Reportable 10/22/17 07:06 Dohle Bodies Not Reportable 10/22/17 07:06 Pelger-Huet Anomaly Not Reportable 10/22/17 07:06 Heather Rods Not Reportable 10/22/17 07:06 Platelet Estimate Cons 10/22/17 07:06 Clumped Platelets Not Reportable 10/22/17 07:06 Plt Clumps, EDTA Not Reportable 10/22/17 07:06 Large Platelets Few 10/22/17 07:06 Giant Platelets Not Reportable 10/22/17 07:06 Platelet Satelliting Not Reportable 10/22/17 07:06 Plt Morphology Comment Not Reportable 10/22/17 07:06 RBC Morphology Not Reportable 10/22/17 07:06 Dimorphic RBCs Not Reportable 10/22/17 07:06 Polychromasia Not Reportable 10/22/17 07:06 Hypochromasia Not Reportable 10/22/17 07:06 Poikilocytosis 1+ 10/22/17 07:06 Anisocytosis 1+ 10/22/17 07:06 Microcytosis Not Reportable 10/22/17 07:06 Macrocytosis Not Reportable 10/22/17 07:06 Spherocytes Not Reportable 10/22/17 07:06 Pappenheimer Bodies Not Reportable 10/22/17 07:06 Sickle Cells Not Reportable 10/22/17 07:06 Target Cells Not Reportable 10/22/17 07:06 Tear Drop Cells Not Reportable 10/22/17 07:06 Ovalocytes Few 10/22/17 07:06 Helmet Cells Not Reportable 10/22/17 07:06 [place] Bodies Not Reportable 10/22/17 07:06 [place] Rings Not Reportable 10/22/17 07:06 [place] Cells Not Reportable 10/22/17 07:06 Bite Cells Not Reportable 10/22/17 07:06 Crenated Cell Not Reportable 10/22/17 07:06 Elliptocytes Rare 10/22/17 07:06 Acanthocytes (Spur) Few 10/22/17 07:06 Rouleaux Not Reportable 10/22/17 07:06 Hemoglobin C Crystals Not Reportable 10/22/17 07:06 Schistocytes Not Reportable 10/22/17 07:06 Malaria parasites Not Reportable 10/22/17 07:06 Orestes Bodies Not Reportable 10/22/17 07:06 Hem Pathologist Commnt No 10/22/17 07:06 Sodium 141 mmol/L (137-145) 10/22/17 05:30 Potassium 3.0 mmol/L (3.6-5.0) L D 10/22/17 05:30 Chloride 100.6 mmol/L (98-107) 10/22/17 05:30 Carbon Dioxide 19 mmol/L (22-30) L D 10/22/17 05:30 Anion Gap 24 mmol/L 10/22/17 05:30 BUN 41 mg/dL (9-20) H 10/22/17 05:30 Creatinine 3.8 mg/dL (0.8-1.5) H D 10/22/17 05:30 Estimated GFR 17 ml/min 10/22/17 05:30 BUN/Creatinine Ratio 11 % 10/22/17 05:30 Glucose 137 mg/dL (75-100) H 10/22/17 05:30 POC Glucose 109 (70-105) H 10/22/17 20:33 Calcium 7.5 mg/dL (8.4-10.2) L D 10/22/17 05:30 Phosphorus 7.10 mg/dL (2.5-4.5) H 10/23/17 04:00 Total Bilirubin 0.20 mg/dL (0.1-1.2) 10/21/17 20:05 AST 18 units/L (5-40) 10/21/17 20:05 ALT 11 units/L (7-56) 10/21/17 20:05 Alkaline Phosphatase 111 units/L (35-129) 10/21/17 20:05 Total Creatine Kinase 2198 units/L (55-170) H 10/22/17 05:30 CK-MB (CK-2) 30.4 ng/mL (0.0-4.0) H 10/22/17 05:30 CK-MB (CK-2) Rel Index 1.3 (0-4) 10/22/17 05:30 Troponin T 0.572 ng/mL (0.00-0.029) H* D 10/22/17 05:30 Total Protein 6.5 g/dL (6.3-8.2) 10/21/17 20:05 Albumin 2.4 g/dL (3.9-5) L 10/21/17 20:05 Albumin/Globulin Ratio 0.6 % 10/21/17 20:05 Triglycerides 115 mg/dL (2-149) 10/21/17 20:05 Cholesterol 111 mg/dL (50-199) 10/21/17 20:05 LDL Cholesterol Direct 39 mg/dL (50-130) L 10/21/17 20:05 HDL Cholesterol 49 mg/dL (40-59) 10/21/17 20:05 Cholesterol/HDL Ratio 2.26 % 10/21/17 20:05 TSH 12.120 mlU/mL (0.270-4.200) H 10/21/17 20:05 PTH Intact 169.7 pg/mL (15-65) H 10/23/17 05:00 Plasma/Serum Alcohol < 0.01 % (0-0.07) 10/21/17 20:05 Hepatitis A IgM Ab Non-reactive (NonReactive) 10/22/17 05:30 Hep Bs Antigen Reactive (Negative) 10/22/17 05:30 Hep B Core IgM Ab Non-reactive (NonReactive) 10/22/17 05:30 Hepatitis C Antibody Non-reactive (NonReactive) 10/22/17 05:30 <ZAHRAA RUSSELL - Last Filed: 10/23/17 20:43> Assessment and Plan Assessment and plan: I saw and evaluated the patient. I agree with the findings and the plan of care as documented in the Physician Management Associate's~note, with the following corrections and additions. Hospitalist Physical - Constitutional Vitals: Temp Pulse Resp BP Pulse Ox 97.7 F 70 16 113/67 96 10/23/17 19:29 10/23/17 19:29 10/23/17 19:29 10/23/17 19:29 10/23/17 19:29 Results - Labs CBC & Chem 7: 10/23/17 16:13 10/23/17 16:13 Labs: Laboratory Last Values WBC 4.3 K/mm3 (4.5-11.0) L 10/23/17 16:13 RBC 2.97 M/mm3 (3.65-5.03) L 10/23/17 16:13 Hgb 8.2 gm/dl (11.8-15.2) L 10/23/17 16:13 Hct 26.0 % (35.5-45.6) L 10/23/17 16:13 MCV 88 fl (84-94) 10/23/17 16:13 MCH 28 pg (28-32) 10/23/17 16:13 MCHC 32 % (32-34) 10/23/17 16:13 RDW 16.8 % (13.2-15.2) H 10/23/17 16:13 Plt Count 150 K/mm3 (140-440) 10/23/17 16:13 Add Manual Diff Complete 10/23/17 16:13 Total Counted 100 10/23/17 16:13 Seg Neuts % (Manual) 87.0 % (40.0-70.0) H 10/23/17 16:13 Band Neutrophils % 0 % 10/23/17 16:13 Lymphocytes % (Manual) 7.0 % (13.4-35.0) L 10/23/17 16:13 Reactive Lymphs % (Man) 0 % 10/23/17 16:13 Monocytes % (Manual) 6.0 % (0.0-7.3) 10/23/17 16:13 Eosinophils % (Manual) 0 % (0.0-4.3) 10/23/17 16:13 Basophils % (Manual) 0 % (0.0-1.8) 10/23/17 16:13 Metamyelocytes % 0 % 10/23/17 16:13 Myelocytes % 0 % 10/23/17 16:13 Promyelocytes % 0 % 10/23/17 16:13 Blast Cells % 0 % 10/23/17 16:13 Nucleated RBC % Not Reportable 10/23/17 16:13 Seg Neutrophils # Man 3.7 K/mm3 (1.8-7.7) 10/23/17 16:13 Band Neutrophils # 0.0 K/mm3 10/23/17 16:13 Lymphocytes # (Manual) 0.3 K/mm3 (1.2-5.4) L 10/23/17 16:13 Abs React Lymphs (Man) 0.0 K/mm3 10/23/17 16:13 Monocytes # (Manual) 0.3 K/mm3 (0.0-0.8) 10/23/17 16:13 Eosinophils # (Manual) 0.0 K/mm3 (0.0-0.4) 10/23/17 16:13 Basophils # (Manual) 0.0 K/mm3 (0.0-0.1) 10/23/17 16:13 Metamyelocytes # 0.0 K/mm3 10/23/17 16:13 Myelocytes # 0.0 K/mm3 10/23/17 16:13 Promyelocytes # 0.0 K/mm3 10/23/17 16:13 Blast Cells # 0.0 K/mm3 10/23/17 16:13 WBC Morphology Not Reportable 10/23/17 16:13 Hypersegmented Neuts Not Reportable 10/23/17 16:13 Hyposegmented Neuts Not Reportable 10/23/17 16:13 Hypogranular Neuts Not Reportable 10/23/17 16:13 Smudge Cells Not Reportable 10/23/17 16:13 Toxic Granulation Not Reportable 10/23/17 16:13 Toxic Vacuolation Not Reportable 10/23/17 16:13 Dohle Bodies Not Reportable 10/23/17 16:13 Pelger-Huet Anomaly Not Reportable 10/23/17 16:13 Heather Rods Not Reportable 10/23/17 16:13 Platelet Estimate Consistent w auto 10/23/17 16:13 Clumped Platelets Not Reportable 10/23/17 16:13 Plt Clumps, EDTA Not Reportable 10/23/17 16:13 Large Platelets Not Reportable 10/23/17 16:13 Giant Platelets Not Reportable 10/23/17 16:13 Platelet Satelliting Not Reportable 10/23/17 16:13 Plt Morphology Comment Not Reportable 10/23/17 16:13 RBC Morphology Not Reportable 10/23/17 16:13 Dimorphic RBCs Not Reportable 10/23/17 16:13 Polychromasia Not Reportable 10/23/17 16:13 Hypochromasia Not Reportable 10/23/17 16:13 Poikilocytosis Not Reportable 10/23/17 16:13 Anisocytosis 1+ 10/23/17 16:13 Microcytosis Not Reportable 10/23/17 16:13 Macrocytosis Not Reportable 10/23/17 16:13 Spherocytes Not Reportable 10/23/17 16:13 Pappenheimer Bodies Not Reportable 10/23/17 16:13 Sickle Cells Not Reportable 10/23/17 16:13 Target Cells Not Reportable 10/23/17 16:13 Tear Drop Cells Not Reportable 10/23/17 16:13 Ovalocytes Not Reportable 10/23/17 16:13 Helmet Cells Not Reportable 10/23/17 16:13 [place] Bodies Not Reportable 10/23/17 16:13 [place] Rings Not Reportable 10/23/17 16:13 [place] Cells Not Reportable 10/23/17 16:13 Bite Cells Not Reportable 10/23/17 16:13 Crenated Cell Not Reportable 10/23/17 16:13 Elliptocytes Not Reportable 10/23/17 16:13 Acanthocytes (Spur) Not Reportable 10/23/17 16:13 Rouleaux Not Reportable 10/23/17 16:13 Hemoglobin C Crystals Not Reportable 10/23/17 16:13 Schistocytes Not Reportable 10/23/17 16:13 Malaria parasites Not Reportable 10/23/17 16:13 Orestes Bodies Not Reportable 10/23/17 16:13 Hem Pathologist Commnt No 10/23/17 16:13 Sodium 139 mmol/L (137-145) 10/23/17 16:13 Potassium 4.1 mmol/L (3.6-5.0) D 10/23/17 16:13 Chloride 101.7 mmol/L (98-107) 10/23/17 16:13 Carbon Dioxide 16 mmol/L (22-30) L 10/23/17 16:13 Anion Gap 25 mmol/L 10/23/17 16:13 BUN 54 mg/dL (9-20) H 10/23/17 16:13 Creatinine 6.2 mg/dL (0.8-1.5) H D 10/23/17 16:13 Estimated GFR 10 ml/min 10/23/17 16:13 BUN/Creatinine Ratio 9 % 10/23/17 16:13 Glucose 177 mg/dL (75-100) H 10/23/17 16:13 POC Glucose 109 (70-105) H 10/22/17 20:33 Calcium 5.5 mg/dL (8.4-10.2) L* D 10/23/17 16:13 Phosphorus 7.10 mg/dL (2.5-4.5) H 10/23/17 04:00 Total Bilirubin 0.20 mg/dL (0.1-1.2) 10/21/17 20:05 AST 18 units/L (5-40) 10/21/17 20:05 ALT 11 units/L (7-56) 10/21/17 20:05 Alkaline Phosphatase 111 units/L (35-129) 10/21/17 20:05 Total Creatine Kinase 2198 units/L (55-170) H 10/22/17 05:30 CK-MB (CK-2) 30.4 ng/mL (0.0-4.0) H 10/22/17 05:30 CK-MB (CK-2) Rel Index 1.3 (0-4) 10/22/17 05:30 Troponin T 0.572 ng/mL (0.00-0.029) H* D 10/22/17 05:30 Total Protein 6.5 g/dL (6.3-8.2) 10/21/17 20:05 Albumin 2.4 g/dL (3.9-5) L 10/21/17 20:05 Albumin/Globulin Ratio 0.6 % 10/21/17 20:05 Triglycerides 115 mg/dL (2-149) 10/21/17 20:05 Cholesterol 111 mg/dL (50-199) 10/21/17 20:05 LDL Cholesterol Direct 39 mg/dL (50-130) L 10/21/17 20:05 HDL Cholesterol 49 mg/dL (40-59) 10/21/17 20:05 Cholesterol/HDL Ratio 2.26 % 10/21/17 20:05 TSH 12.120 mlU/mL (0.270-4.200) H 10/21/17 20:05 PTH Intact 169.7 pg/mL (15-65) H 10/23/17 05:00 Plasma/Serum Alcohol < 0.01 % (0-0.07) 10/21/17 20:05 Hepatitis A IgM Ab Non-reactive (NonReactive) 10/22/17 05:30 Hep Bs Antigen Reactive (Negative) 10/22/17 05:30 Hep B Core IgM Ab Non-reactive (NonReactive) 10/22/17 05:30 Hepatitis C Antibody Non-reactive (NonReactive) 10/22/17 05:30
--- NOTE | 2017-10-23 11:28 | Consultation ---
History of Present Illness Consult date: 10/23/17 Requesting physician: MICHAEL PERKINS Consult reason: elevated troponin History of present illness: The patient is a 47-year-old male with a past medical history significant for ESRD on HD. The patient is reportedly a resident at [facility]. The patient is a very poor historian and when asked why he is hospitalized the patient replies "I don't know." Per the chart, the pt was sent from his snf because he had not had dialysis for 1 month. Following arrival, troponins were found to be elevated and thus cardiology has been consulted. On evaluation , pt is in no apparent distress and denies any current complaints. Past History Past Medical History: dialysis, renal failure Past Surgical History: Other (Unable to obtain) Social history: other (Unable to obtain) Family history: other (Unable to obtain) Medications and Allergies Allergies Allergy/AdvReac Type Severity Reaction Status Date / Time No Known Allergies Allergy Unverified 10/21/17 19:48 Home Medications Medication Instructions Recorded Confirmed Last Taken Type Atorvastatin Calcium [Lipitor] 10 mg PO QHS 10/21/17 10/22/17 1 Day Ago History ~10/21/17 Calcium Acetate [Phoslo] 667 mg PO TID 10/21/17 10/22/17 1 Day Ago History ~10/21/17 Levothyroxine [Synthroid] 25 mcg PO QAM 10/21/17 10/22/17 1 Day Ago History ~10/21/17 Lisinopril [Zestril TAB] 2.5 mg PO QDAY 10/21/17 10/22/17 1 Day Ago History ~10/21/17 Metoprolol [Lopressor] 25 mg PO DAILY 10/21/17 10/22/17 1 Day Ago History ~10/21/17 Sulfamethoxazole/Trimethoprim 1 each PO DAILY 10/21/17 10/22/17 1 Week Ago History [Sulfamethoxazole-Tmp Ss Tablet] ~10/15/17 Active Meds: Active Medications Acetaminophen (Tylenol) 650 mg PO Q4H PRN PRN Reason: Pain MILD(1-3)/Fever >100.5/CM Amlodipine Besylate (Norvasc) 10 mg PO QDAY SALLY Atorvastatin Calcium (Lipitor) 10 mg PO QHS [facility] Last Admin: 10/22/17 21:30 Dose: 10 mg Bisacodyl (Dulcolax) 10 mg HI QDAY PRN PRN Reason: Constipation unrelieved by [facility] Calcium Acetate (Phoslo) 667 mg PO TIDWM [facility] Last Admin: 10/22/17 18:18 Dose: Not Given Epoetin Boyd (Procrit) 10,000 unit IV ASHISH PRN PRN Reason: hemodialysis Heparin Sodium (Porcine) (Heparin) 5,000 unit IV ASHISH PRN PRN Reason: hemodialysis Last Admin: 10/22/17 06:03 Dose: 5,000 unit Sodium Chloride (Nacl 0.9%) 100 mls @ 999 mls/hr IV ASHISH PRN PRN Reason: Hypotension Levofloxacin (Levaquin) 500 mg PO Q48H [facility] Levothyroxine Sodium (Synthroid) 50 mcg PO DAILY@0600 [facility] Last Admin: 10/23/17 07:58 Dose: Not Given Magnesium Hydroxide (Milk Of Magnesia) 30 ml PO Q4H PRN PRN Reason: Constipation Metoprolol Tartrate (Lopressor) 50 mg PO BID [facility] Ondansetron HCl (Zofran) 4 mg IV Q8H PRN PRN Reason: N/V unrelieved by Reglan Review of Systems All systems: negative (no current complaints) Physical Examination Vital Signs Temp Pulse Resp BP Pulse Ox 93.4 F L 63 18 153/89 100 10/21/17 19:51 10/21/17 19:51 10/21/17 19:51 10/21/17 19:51 10/21/17 19:51 General appearance: no acute distress, other (lethargic) HEENT: Positive: PERRL, Normocephaly, Mucus Membranes Moist Neck: Positive: neck supple, trachea midline Cardiac: Positive: Reg Rate and Rhythm, S1/S2 Lungs: Positive: clear to auscultation Neuro: Positive: Grossly Intact Abdomen: Positive: Soft. Negative: Tender Skin: Negative: Wound Musculoskeletal: No Fluid Collection, No Pain, Normal Range of Motion Extremities: Absent: edema Results 10/22/17 07:06 10/22/17 05:30 - Imaging and Cardiology Echo: pending EKG: report reviewed, image reviewed EKG interpretations - Telemetry EKG Rhythm: Sinus Rhythm - EKG Sinus rhythms and dysrhythmias: sinus rhythm AV and intraventricular conduction: right bundle branch block (incomplete) Assessment and Plan Do not suspect ACS at this time. Elevated troponins likely secondary to ESRD. Telemetry reviewed - pt had one bout of apparent atrial flutter with RVR (HR 150s) on the monitor this AM. Will initiate BB and continue to monitor. Obtain echo. Optimize anti-hypertensive regimen. The patient has been seen in conjunction with Dr. Brizuela who agrees with the assessment and plan of care. - Patient Problems (1) Elevated troponin Current Visit: Yes Status: Acute (2) End stage renal disease Current Visit: Yes Status: Chronic (3) Hypertension Current Visit: Yes Status: Chronic (4) Hyperkalemia Current Visit: Yes Status: Acute (5) Hypocalcemia Current Visit: Yes Status: Acute (6) Transient atrial fibrillation or flutter Current Visit: Yes Status: Acute (7) Anemia Current Visit: Yes Status: Chronic (8) Thrombocytopenia Current Visit: Yes Status: Acute (9) Hypothyroidism Current Visit: Yes Status: Chronic
[2017-10-23] MEDS: LOPRESSOR PO SCH ×2 (12:29→21:56)
[2017-10-23] MEDS: NORVASC PO SCH (12:30)
[2017-10-23 17:57] LABS: Hemoglobin 8.2 gm/dl (11.8-15.2); Mean Corpuscular HGB Conc 32 % (32-34); Mean Corpuscular Hemoglobin 28 pg (28-32); Mean Corpuscular Volume 88 fl (84-94); Platelet Count 150 K/mm3 (140-440); Red Blood Count 2.97 M/mm3 (3.65-5.03); Red Cell Distribution Width 16.8 % (13.2-15.2)
[2017-10-23 18:34] LABS: Calcium 5.5 mg/dL (8.4-10.2)
--- NOTE | 2017-10-23 19:38 | Progress Note ---
Assessment and Plan - Patient Problems (1) End stage renal disease Current Visit: Yes Status: Chronic Plan to address problem: Patient is not a [place] citizen nor a permanent resident. It will be quite challenging arranging for dialysis at the outpatient clinic. He was dialyzing at [facility] but no longer has transportation to get there since he was moved to transitional home in [facility]. (2) Hyperkalemia Current Visit: Yes Status: Acute Plan to address problem: Potassium improved with dialysis. (3) Hypocalcemia Current Visit: Yes Status: Acute Plan to address problem: Calcium improving with dialysis on a high calcium bath. Start vitamin D analog and calcium-based phosphorus binder (4) Anemia in chronic kidney disease Current Visit: Yes Status: Acute Plan to address problem: Erythropoietin on dialysis (5) Metabolic acidosis Current Visit: Yes Status: Acute Plan to address problem: Uremic acidosis. Should improve with dialysis. (6) Hypothyroidism (acquired) Current Visit: Yes Status: Acute Plan to address problem: Continue Synthroid Subjective Date of service: 10/23/17 Principal diagnosis: end-stage renal disease with uremia Interval history: Patient seen lying in bed. He is conversing more today. He says he was getting dialysis at [facility]. He was transferred to transitional home in [facility] and did not have transportation to go to [place] for his dialysis. He has missed dialysis for a few weeks. He is concerned as he cannot find his dentures. He was not able to eat his dinner Objective - Exam Narrative Exam: Middle aged male lying in bed in no acute distress HEENT: NCAT, blind right eye, pink oral mucous membrane Neck: Supple, no venous distention CVS: S1S2 RRR with no murmur, rub or gallop Chest: Clear to auscultation Abdomen: Protuberant, soft, nontender, no organomegaly, bowel sounds are present Extremities: No edema Skin with hyperpigmented scars and scratch butler Neuro: Awake, alert no focal deficits - Vital Signs Vital signs: Vital Signs - 12hr 10/23/17 10/23/17 10/23/17 07:44 12:22 12:29 Temperature 98.3 F Pulse Rate 97 H 83 84 Respiratory 18 Rate Blood Pressure 165/94 165/94 Blood Pressure [Right] O2 Sat by Pulse 98 Oximetry 02/27/18 02/27/18 02/27/18 12:30 12:36 16:45 Temperature 97.8 F Pulse Rate 84 82 Respiratory 20 Rate Blood Pressure 165/94 Blood Pressure 156/80 [Right] O2 Sat by Pulse 92 95 Oximetry - Lab 10/23/17 16:13 10/23/17 16:13 Most recent lab results Calcium 5.5 mg/dL (8.4-10.2) L* D 10/23/17 16:13 Phosphorus 7.10 mg/dL (2.5-4.5) H 10/23/17 04:00
[2017-10-23 19:51] LABS: Anisocytosis 1+; Basophils % (Manual) 0 % (0.0-1.8); Eosinophils % (Manual) 0 % (0.0-4.3); Platelet Estimate Consistent w Auto; Total Cells Counted 100
[2017-10-23] MEDS: LEVAQUIN PO SCH ×2 (21:56→21:57)
[2017-10-24] MEDS: SYNTHROID PO SCH (06:30)
[2017-10-24 07:03] LABS: Hematocrit 24.9 % (35.5-45.6); Hemoglobin 8.1 gm/dl (11.8-15.2); Mean Corpuscular HGB Conc 33 % (32-34); Mean Corpuscular Hemoglobin 28 pg (28-32); Mean Corpuscular Volume 86 fl (84-94); Platelet Count 151 K/mm3 (140-440); Red Blood Count 2.89 M/mm3 (3.65-5.03); Red Cell Distribution Width 16.9 % (13.2-15.2)
[2017-10-24 07:41] LABS: Calcium 5.3 mg/dL (8.4-10.2)
[2017-10-24] MEDS: PHOSLO PO SCH ×3 (08:00→16:40)
--- NOTE | 2017-10-24 10:28 | Progress Note ---
Assessment and Plan - Patient Problems (1) End stage renal disease Current Visit: Yes Status: Chronic Plan to address problem: Patient is not a [place] citizen nor a permanent resident. It will be quite challenging arranging for dialysis at the outpatient clinic. He was dialyzing at [facility] but no longer has transportation to get there since he was moved to [facility] in [facility]. Discussed with correctional case manager to call the transitional intermediate and see if they can arrange transportation to [place] for dialysis as an outpatient. Patient would not be accepted by outpatient dialysis clinics (2) Hyperkalemia Current Visit: Yes Status: Acute Plan to address problem: Potassium improved with dialysis. (3) Hypocalcemia Current Visit: Yes Status: Acute Plan to address problem: Calcium improving with dialysis on a high calcium bath. Start vitamin D analog and calcium-based phosphorus binder (4) Anemia in chronic kidney disease Current Visit: Yes Status: Acute Plan to address problem: Erythropoietin on dialysis (5) Metabolic acidosis Current Visit: Yes Status: Acute Plan to address problem: Uremic acidosis. (6) Hypothyroidism (acquired) Current Visit: Yes Status: Acute Plan to address problem: Continue Synthroid Subjective Date of service: 10/24/17 Principal diagnosis: end-stage renal disease with uremia Interval history: Patient seen lying in bed. He still cannot find his dentures. He denies any chest pain, shortness of breath, vomiting Objective - Exam Narrative Exam: Middle aged male lying in bed in no acute distress HEENT: NCAT, blind right eye, pink oral mucous membrane Neck: Supple, no venous distention CVS: S1S2 RRR with no murmur, rub or gallop Chest: Clear to auscultation Abdomen: Protuberant, soft, nontender, no organomegaly, bowel sounds are present Extremities: No edema Skin with hyperpigmented scars and scratch butler Neuro: Awake, alert no focal deficits - Vital Signs Vital signs: Vital Signs - 12hr 10/23/17 10/24/17 10/24/17 23:38 03:34 04:00 Temperature 97.7 F 98.1 F Pulse Rate 60 63 Respiratory 16 16 16 Rate Blood Pressure 116/67 125/76 O2 Sat by Pulse 100 100 99 Oximetry 10/24/17 10/24/17 07:15 08:28 Temperature 98.1 F Pulse Rate 67 Respiratory 18 Rate Blood Pressure 140/78 O2 Sat by Pulse 100 96 Oximetry - Lab 10/24/17 05:44 10/24/17 05:44 Most recent lab results Calcium 5.3 mg/dL (8.4-10.2) L* 10/24/17 05:44 Phosphorus 7.10 mg/dL (2.5-4.5) H 10/23/17 04:00
--- NOTE | 2017-10-24 11:24 | Progress Note ---
Assessment and Plan Echo reviewed - EF 25-30%, RA and LA mod dilated, severe TR, impaired relaxation , RV systolic function severely reduced, mild pulm HTN with RVSP 44mmHg. Cont lopressor. No ACEI/ARB at this time given ESRD and recent hyperkalemia. Resume telemetry. Plan for lexiscan MPI stress test in AM. NPO after MN. The patient has been seen in conjunction with Dr. Brizuela who agrees with the assessment and plan of care. - Patient Problems (1) Cardiomyopathy Current Visit: Yes Status: Chronic (2) Elevated troponin Current Visit: Yes Status: Acute (3) End stage renal disease Current Visit: Yes Status: Chronic (4) Hypertension Current Visit: Yes Status: Chronic (5) Hyperkalemia Current Visit: Yes Status: Acute (6) Hypocalcemia Current Visit: Yes Status: Acute (7) Transient atrial fibrillation or flutter Current Visit: Yes Status: Acute (8) Anemia Current Visit: Yes Status: Chronic (9) Thrombocytopenia Current Visit: Yes Status: Acute (10) Hypothyroidism Current Visit: Yes Status: Chronic (11) Severe tricuspid regurgitation Current Visit: Yes Status: Chronic (12) Mild pulmonary hypertension Current Visit: Yes Status: Chronic Subjective Date of service: 10/24/17 Principal diagnosis: end-stage renal disease with uremia Interval history: pt resting comfortably in bed, no current complaints. not on remote telemetry - will resume. Objective Last Vital Signs Temp 98.1 F 10/24/17 07:15 Pulse 67 10/24/17 07:15 Resp 18 10/24/17 07:15 BP 140/78 10/24/17 07:15 Pulse Ox 96 10/24/17 08:28 - Physical Examination General: No Apparent Distress HEENT: Positive: PERRL, Normocephaly, Mucus Membranes Moist Neck: Positive: neck supple, trachea midline Cardiac: Positive: Reg Rate and Rhythm, S1/S2 Lungs: Positive: clear to auscultation Neuro: Positive: Grossly Intact Abdomen: Positive: Soft. Negative: Tender Skin: Negative: Wound Musculoskeletal: No Fluid Collection, No Pain, Normal Range of Motion Extremities: Absent: edema - Labs and Meds CBC 10/23/17 10/24/17 Range/Units 16:13 05:44 WBC 4.3 L 5.4 (4.5-11.0) K/mm3 RBC 2.97 L 2.89 L (3.65-5.03) M/mm3 Hgb 8.2 L 8.1 L (11.8-15.2) gm/dl Hct 26.0 L 24.9 L (35.5-45.6) % Plt Count 150 151 (140-440) K/mm3 Comprehensive Metabolic Panel 10/23/17 10/24/17 Range/Units 16:13 05:44 Sodium 139 138 (137-145) mmol/L Potassium 4.1 D 4.1 (3.6-5.0) mmol/L Chloride 101.7 101.6 (98-107) mmol/L Carbon Dioxide 16 L 20 L (22-30) mmol/L BUN 54 H 56 H (9-20) mg/dL Creatinine 6.2 H D 6.5 H (0.8-1.5) mg/dL Glucose 177 H 109 H (75-100) mg/dL Calcium 5.5 L* D 5.3 L* (8.4-10.2) mg/dL - Imaging and Cardiology EKG: report reviewed, image reviewed Echo: pending - EKG Sinus rhythms and dysrhythmias: sinus rhythm AV and intraventricular conduction: right bundle branch block (incomplete)
[2017-10-24] MEDS: NORVASC PO SCH (16:41)
[2017-10-24] MEDS: LOPRESSOR PO SCH ×2 (16:50→22:16)
--- NOTE | 2017-10-24 17:08 | Progress Note ---
Assessment and Plan Assessment and plan: Toxic metabolic Encephalopathy 2/2 uremia, resolved Volume Overload 2/2 missed HD ESRD on HD HFrEF, LVEF 25% Noncompliance with HD/Meds Profound Chronic Anemia Adult FTT. Generalized weakness HTN, essen, chronic. Plan inputs and reccs of the specialists appreciated f.u stress test tomorrow once done am labs fall and aspiration precautions at all times close monitoring avoid nephrotoxic agents further pt mght per hospital course dvt and GI ulcer prophylaxis 25 mins spent History Interval history: A 47 y/o male admitted with Volume Overload, Metabolic Encephalopathy, who had missed HD for more than a month. 2D Echo report noted, pt has LVEF 25%. Pt seen and exam by bedside, no new complaints. Nursing notes reviewed. The specialists documentation reviewed, inputs and reccs appreciated. Pt is scheduled for stress test in am per cardio team reccs. Denies CP/SOB/N/V. No family at bedside during this encounter. Hospitalist Physical - Constitutional Vitals: Temp Pulse Resp BP Pulse Ox 98.0 F 92 H 20 198/107 96 10/24/17 13:30 10/24/17 16:50 10/24/17 13:30 10/24/17 16:50 10/24/17 08:28 General appearance: Present: no acute distress, well-nourished, other ( chronically ill appearing) - EENT Eyes: Present: PERRL, EOM intact ENT: hearing intact, clear oral mucosa - Neck Neck: Present: supple, normal ROM - Respiratory Respiratory: bilateral: diminished, rales, negative: rhonchi, wheezing - Cardiovascular Rhythm: regular Heart Sounds: Present: S1 & S2 - Extremities Extremities: no ischemia, pulses intact, pulses symmetrical Peripheral Pulses: within normal limits - Abdominal General gastrointestinal: non-tender, non-distended, normal bowel sounds - Integumentary Integumentary: Present: warm, rash - Psychiatric Psychiatric: appropriate mood/affect, intact judgment & insight, cooperative - Neurologic Neurologic: moves all extremities - Allied Health Allied health notes reviewed: nursing, social work, case management Results - Labs CBC & Chem 7: 10/24/17 05:44 10/24/17 05:44 Labs: Laboratory Last Values WBC 5.4 K/mm3 (4.5-11.0) 10/24/17 05:44 RBC 2.89 M/mm3 (3.65-5.03) L 10/24/17 05:44 Hgb 8.1 gm/dl (11.8-15.2) L 10/24/17 05:44 Hct 24.9 % (35.5-45.6) L 10/24/17 05:44 MCV 86 fl (84-94) 10/24/17 05:44 MCH 28 pg (28-32) 10/24/17 05:44 MCHC 33 % (32-34) 10/24/17 05:44 RDW 16.9 % (13.2-15.2) H 10/24/17 05:44 Plt Count 151 K/mm3 (140-440) 10/24/17 05:44 Add Manual Diff Complete 10/23/17 16:13 Total Counted 100 10/23/17 16:13 Seg Neuts % (Manual) 87.0 % (40.0-70.0) H 10/23/17 16:13 Band Neutrophils % 0 % 10/23/17 16:13 Lymphocytes % (Manual) 7.0 % (13.4-35.0) L 10/23/17 16:13 Reactive Lymphs % (Man) 0 % 10/23/17 16:13 Monocytes % (Manual) 6.0 % (0.0-7.3) 10/23/17 16:13 Eosinophils % (Manual) 0 % (0.0-4.3) 10/23/17 16:13 Basophils % (Manual) 0 % (0.0-1.8) 10/23/17 16:13 Metamyelocytes % 0 % 10/23/17 16:13 Myelocytes % 0 % 10/23/17 16:13 Promyelocytes % 0 % 10/23/17 16:13 Blast Cells % 0 % 10/23/17 16:13 Nucleated RBC % Not Reportable 10/23/17 16:13 Seg Neutrophils # Man 3.7 K/mm3 (1.8-7.7) 10/23/17 16:13 Band Neutrophils # 0.0 K/mm3 10/23/17 16:13 Lymphocytes # (Manual) 0.3 K/mm3 (1.2-5.4) L 10/23/17 16:13 Abs React Lymphs (Man) 0.0 K/mm3 10/23/17 16:13 Monocytes # (Manual) 0.3 K/mm3 (0.0-0.8) 10/23/17 16:13 Eosinophils # (Manual) 0.0 K/mm3 (0.0-0.4) 10/23/17 16:13 Basophils # (Manual) 0.0 K/mm3 (0.0-0.1) 10/23/17 16:13 Metamyelocytes # 0.0 K/mm3 10/23/17 16:13 Myelocytes # 0.0 K/mm3 10/23/17 16:13 Promyelocytes # 0.0 K/mm3 10/23/17 16:13 Blast Cells # 0.0 K/mm3 10/23/17 16:13 WBC Morphology Not Reportable 10/23/17 16:13 Hypersegmented Neuts Not Reportable 10/23/17 16:13 Hyposegmented Neuts Not Reportable 10/23/17 16:13 Hypogranular Neuts Not Reportable 10/23/17 16:13 Smudge Cells Not Reportable 10/23/17 16:13 Toxic Granulation Not Reportable 10/23/17 16:13 Toxic Vacuolation Not Reportable 10/23/17 16:13 Dohle Bodies Not Reportable 10/23/17 16:13 Pelger-Huet Anomaly Not Reportable 10/23/17 16:13 Heather Rods Not Reportable 10/23/17 16:13 Platelet Estimate Consistent w auto 10/23/17 16:13 Clumped Platelets Not Reportable 10/23/17 16:13 Plt Clumps, EDTA Not Reportable 10/23/17 16:13 Large Platelets Not Reportable 10/23/17 16:13 Giant Platelets Not Reportable 10/23/17 16:13 Platelet Satelliting Not Reportable 10/23/17 16:13 Plt Morphology Comment Not Reportable 10/23/17 16:13 RBC Morphology Not Reportable 10/23/17 16:13 Dimorphic RBCs Not Reportable 10/23/17 16:13 Polychromasia Not Reportable 10/23/17 16:13 Hypochromasia Not Reportable 10/23/17 16:13 Poikilocytosis Not Reportable 10/23/17 16:13 Anisocytosis 1+ 10/23/17 16:13 Microcytosis Not Reportable 10/23/17 16:13 Macrocytosis Not Reportable 10/23/17 16:13 Spherocytes Not Reportable 10/23/17 16:13 Pappenheimer Bodies Not Reportable 10/23/17 16:13 Sickle Cells Not Reportable 10/23/17 16:13 Target Cells Not Reportable 10/23/17 16:13 Tear Drop Cells Not Reportable 10/23/17 16:13 Ovalocytes Not Reportable 10/23/17 16:13 Helmet Cells Not Reportable 10/23/17 16:13 [place] Bodies Not Reportable 10/23/17 16:13 [place] Rings Not Reportable 10/23/17 16:13 [place] Cells Not Reportable 10/23/17 16:13 Bite Cells Not Reportable 10/23/17 16:13 Crenated Cell Not Reportable 10/23/17 16:13 Elliptocytes Not Reportable 10/23/17 16:13 Acanthocytes (Spur) Not Reportable 10/23/17 16:13 Rouleaux Not Reportable 10/23/17 16:13 Hemoglobin C Crystals Not Reportable 10/23/17 16:13 Schistocytes Not Reportable 10/23/17 16:13 Malaria parasites Not Reportable 10/23/17 16:13 Orestes Bodies Not Reportable 10/23/17 16:13 Hem Pathologist Commnt No 10/23/17 16:13 Sodium 138 mmol/L (137-145) 10/24/17 05:44 Potassium 4.1 mmol/L (3.6-5.0) 10/24/17 05:44 Chloride 101.6 mmol/L (98-107) 10/24/17 05:44 Carbon Dioxide 20 mmol/L (22-30) L 10/24/17 05:44 Anion Gap 21 mmol/L 10/24/17 05:44 BUN 56 mg/dL (9-20) H 10/24/17 05:44 Creatinine 6.5 mg/dL (0.8-1.5) H 10/24/17 05:44 Estimated GFR 9 ml/min 10/24/17 05:44 BUN/Creatinine Ratio 9 % 10/24/17 05:44 Glucose 109 mg/dL (75-100) H 10/24/17 05:44 POC Glucose 109 (70-105) H 10/22/17 20:33 Calcium 5.3 mg/dL (8.4-10.2) L* 10/24/17 05:44 Phosphorus 7.10 mg/dL (2.5-4.5) H 10/23/17 04:00 Total Bilirubin 0.20 mg/dL (0.1-1.2) 10/21/17 20:05 AST 18 units/L (5-40) 10/21/17 20:05 ALT 11 units/L (7-56) 10/21/17 20:05 Alkaline Phosphatase 111 units/L (35-129) 10/21/17 20:05 Total Creatine Kinase 2198 units/L (55-170) H 10/22/17 05:30 CK-MB (CK-2) 30.4 ng/mL (0.0-4.0) H 10/22/17 05:30 CK-MB (CK-2) Rel Index 1.3 (0-4) 10/22/17 05:30 Troponin T 0.572 ng/mL (0.00-0.029) H* D 10/22/17 05:30 Total Protein 6.5 g/dL (6.3-8.2) 10/21/17 20:05 Albumin 2.4 g/dL (3.9-5) L 10/21/17 20:05 Albumin/Globulin Ratio 0.6 % 10/21/17 20:05 Triglycerides 115 mg/dL (2-149) 10/21/17 20:05 Cholesterol 111 mg/dL (50-199) 10/21/17 20:05 LDL Cholesterol Direct 39 mg/dL (50-130) L 10/21/17 20:05 HDL Cholesterol 49 mg/dL (40-59) 10/21/17 20:05 Cholesterol/HDL Ratio 2.26 % 10/21/17 20:05 TSH 12.120 mlU/mL (0.270-4.200) H 10/21/17 20:05 PTH Intact 169.7 pg/mL (15-65) H 10/23/17 05:00 Plasma/Serum Alcohol < 0.01 % (0-0.07) 10/21/17 20:05 Hepatitis A IgM Ab Non-reactive (NonReactive) 10/22/17 05:30 Hep Bs Antigen Reactive (Negative) 10/22/17 05:30 Hep B Core IgM Ab Non-reactive (NonReactive) 10/22/17 05:30 Hepatitis C Antibody Non-reactive (NonReactive) 10/22/17 05:30 - Imaging and Cardiology EKG: report reviewed Chest x-ray: report reviewed
[2017-10-24] MEDS: HEPARIN IV PRN (17:43)
[2017-10-24] MEDS ORDERED: OSCAL PO SCH (18:00)
[2017-10-25 00:43] LABS: Basophils # (Auto) 0.1 K/mm3 (0.0-0.1); Basophils % (Auto) 1.1 % (0.0-1.8); Eosinophils # (Auto) 0.2 K/mm3 (0.0-0.4); Eosinophils % (Auto) 2.5 % (0.0-4.3); Hematocrit 25.9 % (35.5-45.6); Hemoglobin 8.6 gm/dl (11.8-15.2); Lymphocytes % (Auto) 13.6 % (13.4-35.0); Mean Corpuscular HGB Conc 33 % (32-34); Mean Corpuscular Hemoglobin 28 pg (28-32); Mean Corpuscular Volume 85 fl (84-94); Monocytes # (Auto) 0.4 K/mm3 (0.0-0.8); Monocytes % (Auto) 5.9 % (0.0-7.3); Platelet Count 170 K/mm3 (140-440); Red Blood Count 3.06 M/mm3 (3.65-5.03); Red Cell Distribution Width 16.2 % (13.2-15.2)
[2017-10-25 06:05] LABS: Calcium 6.8 mg/dL (8.4-10.2)
[2017-10-25] MEDS: SYNTHROID PO SCH (06:43)
[2017-10-25] MEDS: PHOSLO PO SCH ×2 (08:00→12:00)
--- NOTE | 2017-10-25 08:55 | Progress Note ---
Assessment and Plan - Patient Problems (1) End stage renal disease Current Visit: Yes Status: Chronic Plan to address problem: Patient is not a [place] citizen nor a permanent resident. It will be quite challenging arranging for dialysis at the outpatient clinic. He was dialyzing at [facility] but no longer has transportation to get there since he was moved to [facility] in [facility]. Awaiting arrangements for transportation to [place] for dialysis as an outpatient. Patient would not be accepted by outpatient dialysis clinics (2) Hyperkalemia Current Visit: Yes Status: Acute Plan to address problem: Potassium improved with dialysis. Potassium is now low. Supplement potassium today and follow-up level (3) Hypocalcemia Current Visit: Yes Status: Acute Plan to address problem: Calcium improving with dialysis on a high calcium bath. Continue vitamin D analog and calcium-based phosphorus binder (4) Anemia in chronic kidney disease Current Visit: Yes Status: Acute Plan to address problem: Erythropoietin on dialysis (5) Metabolic acidosis Current Visit: Yes Status: Acute Plan to address problem: Uremic acidosis. Resolved with dialysis (6) Hypothyroidism (acquired) Current Visit: Yes Status: Acute Plan to address problem: Continue Synthroid (7) Chronic systolic heart failure Current Visit: Yes Status: Acute Plan to address problem: Continue beta curt, fluid removal on dialysis. LEONARD inhibitor/angiotensin receptor curt contraindicated with advanced kidney failure and hyperkalemia on admission Subjective Date of service: 10/25/17 Principal diagnosis: end-stage renal disease with uremia Interval history: Patient seen lying in bed. He denies any complaints. He denies any chest pain , shortness of breath, vomiting Objective - Exam Narrative Exam: Middle aged male lying in bed in no acute distress HEENT: NCAT, blind right eye, pink oral mucous membrane Neck: Supple, no venous distention CVS: S1S2 RRR with no murmur, rub or gallop Chest: Clear to auscultation Abdomen: Protuberant, soft, nontender, no organomegaly, bowel sounds are present Extremities: No edema Skin with hyperpigmented scars and scratch butler Neuro: Awake, alert no focal deficits - Vital Signs Vital signs: Vital Signs - 12hr 10/24/17 10/24/17 10/24/17 21:56 22:00 22:16 Temperature Pulse Rate 78 Respiratory 16 Rate Blood Pressure 162/76 O2 Sat by Pulse 96 Oximetry 0210/25/17 10/25/17 23:55 07:27 07:28 Temperature 99.0 F 98.9 F 98.9 F Pulse Rate 74 73 72 Respiratory 14 16 16 Rate Blood Pressure 153/75 164/84 O2 Sat by Pulse 91 91 98 Oximetry - Lab 10/25/17 00:31 10/25/17 04:30 Most recent lab results Calcium 6.8 mg/dL (8.4-10.2) L D 10/25/17 04:30 Phosphorus 7.10 mg/dL (2.5-4.5) H 10/23/17 04:00
[2017-10-25] MEDS ORDERED: LEXISCAN IV ONE (09:29)
[2017-10-25] MEDS ORDERED: K-DUR PO ONE ×2 (09:30→15:14)
--- NOTE | 2017-10-25 09:34 | Discharge Summary ---
Providers - Providers Date of Admission: 10/21/17 21:23 Attending physician: ZAHRAA RUSSELL MD 10/21/17 21:17 Consult to Physician [CONS] Urgent Consulting Provider: ROBYN SILVA Reason For Exam: uremia, hyperkalemia Place consult to:: phone Notified:: y 10/22/17 09:34 Consult to Case Management [CONS] Routine Services Needed at Discharge: Other Notified:: assistant case manager Comment:: arrange outpatient dialysis. Additional Physician Instructions: Also get information about long-term and get in contact to confirm patient's documentation/medical insurance 10/22/17 16:00 Consult to Physician [CONS] Routine Consulting Provider: ISIS GOODEN Reason For Exam: Elevated cardiac enzymes Place consult to:: [facility] Notified:: y Comment:: addedto list Primary care physician: MINING TEACHER Hospitalization Reason for admission: altered mental status Condition: Serious Hospital course: 47-year-old man history of CHF, end-stage renal disease, hypothyroidism was brought to the emergency room for evaluation because he missed 1 month off dialysis. On closer evaluation and detailed research with nephrology and case management patient has been followed by [facility] and actually was placed at [facility] and have been responsible for his rent. Also for his transportation to the [facility] for dialysis. The patient presented here as he has been noncompliant with dialysis. We did attempt multiple ways to find a previous source for outpatient dialysis but this was unsuccessful due to patient 's immigration status. Considering the hemorrhoid has an arrangement arranged by [facility] we will get him back to [facility] left him continue with the current treatment plan. He did have dialysis while he was here we did correct his I abnormalities and he also did have a cardiology evaluation for severe cardiomyopathy with a stress test done today. The patient understands his clinical status and discuss this with him extensively and understands the risk of if he continues to follow with noncompliance but not limited to that also permanent disability. Echocardiography findings was discussed with the patient in detail a close follow-up with template clerk also recommended. Echocardiogram revealed Echo reviewed - EF 25-30%, RA and LA mod dilated, severe TR, impaired relaxation , RV systolic function severely reduced, mild pulm HTN with RVSP 44mmHg Discharge diagnosis Toxic metabolic Encephalopathy 2/2 uremia End-stage renal disease on dialysis Hyperkalemia Type II AK secondary to end-stage renal disease Hypothyroidism Hypertension Anemia of chronic disease Hypocalcemia Adult FTT. Paroxysmal atrial flutter Severe tricuspid regurgitation Mild pulmonary hypertension Disposition: TO HOME OR SELFCARE Time spent for discharge: 35 MINS Core Measure Documentation - Palliative Care Palliative Care/ Comfort Measures: Not Applicable - Core Measures Any of the following diagnoses?: none - VTE Discharge Requirements Deep Vein Thrombosis/Pulmonary Embolism Present on Admission: No Exam - Physical Exam Narrative exam: VITAL SIGNS: Reviewed. GENERAL: The patient appeared chronically ill appearing. Vital signs as documented. HEAD: No signs of head trauma. EYES: Pupils are equal. Extraocular motions intact. EARS: Hearing grossly intact. MOUTH: Oropharynx is normal. NECK: No adenopathy, no JVD. CHEST: Chest with clear breath sounds bilaterally. No wheezes, rales, or rhonchi. CARDIAC: Regular rate and rhythm. S1 and S2, without murmurs, gallops, or rubs. VASCULAR: No Edema. Peripheral pulses normal and equal in all extremities. ABDOMEN: Soft, without detectable tenderness. No sign of distention. No rebound or guarding, and no masses palpated. Bowel Sounds normal. MUSCULOSKELETAL: Good range of motion of all major joints. Extremities without clubbing, cyanosis or edema. NEUROLOGIC EXAM: Alert and oriented x 3. No focal sensory or strength deficits. Speech normal. Follows commands. PSYCHIATRIC: Mood normal. SKIN: No rash or lesions. - Constitutional Vitals: Temp Pulse Resp BP Pulse Ox 98.9 F 72 16 164/84 98 10/25/17 07:28 10/25/17 07:28 10/25/17 07:28 10/25/17 07:27 10/25/17 07:28 Plan Activity: advance as tolerated, fall precautions Diet: renal Additional Instructions: FOLLOW WITH [facility] FOR DIALYSIS AND PCP PREVIOUSLY AGREED WITH THEM Follow up with: PRIMARY CARE, [Primary Care Provider] - 3-5 Days Prescriptions: Atorvastatin Calcium [Lipitor] 10 mg PO QHS #30 tablet Calcium Acetate [Phoslo] 667 mg PO TID #30 capsule Calcium Carbonate [Oscal] 1,250 mg PO QPM #30 tablet Levofloxacin [Levaquin TAB] 500 mg PO Q48H #5 tablet Levothyroxine [Synthroid] 50 mcg PO DAILY@0600 #30 tablet Lisinopril [Zestril TAB] 2.5 mg PO QDAY #30 tablet Metoprolol [Lopressor TAB] 50 mg PO BID #60 tablet
[2017-10-25] MEDS: LOPRESSOR PO SCH (10:00)
--- NOTE | 2017-10-25 11:47 | Progress Note ---
Assessment and Plan Proceed with lexiscan MPI stress test in AM. Await findings. The patient has been seen in conjunction with Dr. Brizuela who agrees with the assessment and plan of care. - Patient Problems (1) Cardiomyopathy Current Visit: Yes Status: Chronic (2) Elevated troponin Current Visit: Yes Status: Acute (3) End stage renal disease Current Visit: Yes Status: Chronic (4) Hypertension Current Visit: Yes Status: Chronic (5) Hyperkalemia Current Visit: Yes Status: Acute (6) Hypocalcemia Current Visit: Yes Status: Acute (7) Transient atrial fibrillation or flutter Current Visit: Yes Status: Acute (8) Anemia Current Visit: Yes Status: Chronic (9) Thrombocytopenia Current Visit: Yes Status: Acute (10) Hypothyroidism Current Visit: Yes Status: Chronic (11) Severe tricuspid regurgitation Current Visit: Yes Status: Chronic (12) Mild pulmonary hypertension Current Visit: Yes Status: Chronic Subjective Date of service: 10/25/17 Principal diagnosis: end-stage renal disease with uremia Interval history: pt resting comfortably in bed, s/p stress test this AM. no current complaints. Objective Last Vital Signs Temp 98.9 F 10/25/17 07:28 Pulse 72 10/25/17 07:28 Resp 16 10/25/17 07:28 BP 164/84 10/25/17 07:27 Pulse Ox 98 10/25/17 07:28 - Physical Examination General: No Apparent Distress HEENT: Positive: PERRL, Normocephaly, Mucus Membranes Moist Neck: Positive: neck supple, trachea midline Cardiac: Positive: Reg Rate and Rhythm, S1/S2 Lungs: Positive: Decreased Breath Sounds Neuro: Positive: Grossly Intact Abdomen: Positive: Soft. Negative: Tender Skin: Negative: Wound Musculoskeletal: No Fluid Collection, No Pain, Normal Range of Motion Extremities: Absent: edema - Labs and Meds CBC 10/25/17 Range/Units 00:31 WBC 7.1 (4.5-11.0) K/mm3 RBC 3.06 L (3.65-5.03) M/mm3 Hgb 8.6 L (11.8-15.2) gm/dl Hct 25.9 L (35.5-45.6) % Plt Count 170 (140-440) K/mm3 Lymph # 1.0 L (1.2-5.4) K/mm3 [place] # 0.4 (0.0-0.8) K/mm3 Eos # 0.2 (0.0-0.4) K/mm3 Baso # 0.1 (0.0-0.1) K/mm3 Comprehensive Metabolic Panel 10/25/17 Range/Units 04:30 Sodium 139 (137-145) mmol/L Potassium 3.2 L D (3.6-5.0) mmol/L Chloride 100.2 (98-107) mmol/L Carbon Dioxide 26 (22-30) mmol/L BUN 20 (9-20) mg/dL Creatinine 3.7 H (0.8-1.5) mg/dL Glucose 114 H (75-100) mg/dL Calcium 6.8 L D (8.4-10.2) mg/dL - Imaging and Cardiology EKG: report reviewed Echo: pending - EKG Sinus rhythms and dysrhythmias: sinus rhythm AV and intraventricular conduction: right bundle branch block (incomplete)
[2017-10-25] MEDS: NORVASC PO SCH (15:15)
[2017-10-25 16:19] VITALS: BP 158/88
--- NOTE | 2017-10-26 03:56 | Treadmill Report ---
THALLIUM REPORT REASON FOR STUDY: Cardiomyopathy. IMAGING PROTOCOL: The patient received Tc-99m Tetrofosmin for stress and rest imaging.Imaging for all procedures was completed 30-90 minutes following the initial injection of Technetium 99m Tetrofosmin. SPECT imaging in the 180 degree arc was performed in the right anterior oblique projection. Computerized reconstruction of the images was performed for analysis. NUCLEAR IMAGING RESULTS: Normal left ventricular cavity size with no change from stress to rest. Distribution of radionuclide within the left ventricle revealed a small area of photo-induction involving the anterior wall. The degree of photo-induction is moderate. Rest imaging showed partial improvement in this defect. In addition, there is a small to medium size area of photo-induction involving the inferior wall. The degree of photo-induction is moderate. Rest imaging does not show any significant improvement in this defect. Gated SPECT imaging revealed normal global LV systolic function with no significant wall motion abnormalities. The calculated left ventricular ejection fraction is 52%. IMPRESSION: Small, partially reversible anterior wall defect. Small to medium sized fixed inferior wall defect. Normal global LV systolic function with no significant wall motion abnormalities. EF 52%. These findings suggest prior infarction with minimal residual ischemia in the left anterior descending coronary artery territory. In addition, there is suggestion of prior infarction in the right coronary artery territory. However, in the absence of significant wall motion abnormalities, the defects noted in this patient may be largely artifactual. Notably, there is significant disparity between the calculated ejection fraction on gated SPECT imaging and echocardiographically assessed ejection fraction in this patient. [facility]# [id number] BRODERICK/ALKA MOREL
== END 2017-10-25 18:00 | disposition short-term general hospital (02) | DRG 280 ==
LOC: ED 18:55 → 4A 21:23 → 3A 10-23 23:18
PROVIDERS: ADMIT Internal Medicine; ATTEND Internal Medicine
PROC: 5A1D70Z Performance of Urinary Filtration, Intermittent, Less than 6 Hours Per Day (ICD-10-PCS; principal; 2017-10-22)
PROC: 5A1D70Z Performance of Urinary Filtration, Intermittent, Less than 6 Hours Per Day (ICD-10-PCS; 2017-10-24)
DX: I21.A1 Myocardial infarction type 2 (principal); N18.6 End stage renal disease; G92 Toxic encephalopathy; I13.2 Hypertensive heart and chronic kidney disease with heart failure and with stage 5 chronic kidney disease, or end stage renal disease; I48.92 Unspecified atrial flutter; E87.2 Acidosis; I42.9 Cardiomyopathy, unspecified; I50.22 Chronic systolic (congestive) heart failure; E87.5 Hyperkalemia; E03.9 Hypothyroidism, unspecified; D63.8 Anemia in other chronic diseases classified elsewhere; E83.51 Hypocalcemia; R62.7 Adult failure to thrive; I27.20 Pulmonary hypertension, unspecified; I07.1 Rheumatic tricuspid insufficiency; T68.XXXA Hypothermia, initial encounter; E87.70 Fluid overload, unspecified; D63.1 Anemia in chronic kidney disease; I48.91 Unspecified atrial fibrillation; D69.6 Thrombocytopenia, unspecified; Z91.15 Patient's noncompliance with renal dialysis
CPT/HCPCS: 36415; 70460; 71045; 78452; 80048; 80053; 80061; 80074; 80320; 82550; 82553; 82962; 83970; 84100; 84443; 84484; 85007; 85025; 85027; 86705; 93005; 93010; 93017; 93306; 94760; A9270-GY; A9502; G0480; J0360; J0610; J0885; J1644; J1815; J2997; J7030